=== PATIENT | female | born 1960 | race Caucasian/White ===

== ENCOUNTER 2021-09-18 01:04 | Inpatient (IN) | payer BC ==
[2021-09-18] MEDS ORDERED: Aspirin 81 MG Tab.Chew PO ONE (01:37)
[2021-09-18] MEDS ORDERED: Lactated Ringers 1,000 ML IV ONE (01:37)
[2021-09-18] MEDS ORDERED: Ketorolac 15 MG/ML SDV IM ONE (01:37)
[2021-09-18] MEDS ORDERED: Ketorolac 15 MG/ML SDV IVPUSH STA (01:45)
--- NOTE | 2021-09-18 01:57 | PCM.EKG ---
#1 Interpretation EKG Date: 09/18/21 Time: 01:46 Rhythm: NSR Rate (Beats/Min): 77 [place]: Normal P-Wave: Present QRS: Normal ST-T: Normal QT: Normal Comparison: NA - No Prior EKG EKG Interpretation Comments: Sinus Rhythm
--- NOTE | 2021-09-18 01:57 | EDM.PDOC ---
ED HPI GENERAL MEDICAL PROBLEM - General Chief Complaint: General Stated Complaint: WEAKNESS,POSSIBLE EAR INFECTION Time Seen by Provider: 09/18/21 01:20 - History of Present Illness INITIAL COMMENTS - FREE TEXT/NARRATIVE: CHIEF COMPLAINT(S): Weakness HISTORY OF PRESENT ILLNESS: This is a 61-year-old man man with a past medical history of hypertension and diagnosis of COVID-19 approximately 5 days ago who comes to the emergency department with a chief complaint of weakness. The patient states that since being diagnosed she has been experiencing more weakness. She states that she is experiencing some mild shortness of breath and cough however she developed some left-sided chest pain today which she describes as intermittent and worse with deep breathing. She denies any hemoptysis. She currently describes her pain as 7 out of 10 and achy. She denies any radiation of this pain. She denies any numbness or tingling. She denies any history of CAD or CHF. She denies any recent travel, recent surgery, prior history of DVT or PE. She is states that she does not have any lower extremity edema. She has been experiencing a bifrontal headache worse on the left side which is throbbing. She also describes as a 7 out of 10 without any nausea, vomiting, trouble walking speaking or swallowing. She states that she is not vaccinated and did not get the infusion. She denies any other symptoms REVIEW OF SYSTEMS: Constitutional: Positive for weakness. Denies fever, chills. Eyes: Denies eye pain Ears, Nose, Mouth, & Throat: Denies earache Cardiovascular: Denies chest pain Respiratory: Positive for shortness of breath and nonproductive cough. Denies hemoptysis Gastrointestinal: Denies Nausea, vomiting, diarrhea, hematochezia. Genitourinary: Denies hematuria Skin:Denies a rash MSK: Denies joint pain Neurological: Positive for headache. Denies blurred vision, numbness, tingling, weakness, diplopia Psychiatric: Denies depression PAST MEDICAL HISTORY: As per history of present illness and as reviewed below otherwise noncontributory. SURGICAL HISTORY: As per history of present illness and as reviewed below otherwise noncontributory. SOCIAL HISTORY: As per history of present illness and as reviewed below otherwise noncontributory. FAMILY HISTORY: As per history of present illness and as reviewed below otherwise noncontributory. EXAMINATION OF ORGAN SYSTEMS/BODY AREAS: Constitutional: Blood pressure was 128/69, heart rate 89, respiratory rate 22 with an oxygen saturation of 87% on 3 L nasal cannula. Temperature 38.1 General: Middle aged woman without any acute distress. Psychiatric: Appropriate mood and affect. Eyes: No scleral icterus or conjunctival erythema ENMT: Moist mucous membranes. No pharyngeal erythema Cardiovascular: Regular, rate, and rhythm. No gallops, murmurs, or rubs. Bilateral upper extremity pulses symmetric and intact. No peripheral edema. No JVD. Respiratory: Lungs clear to auscultation bilaterally. No wheezes, rales, or rhonchi. Speak in full sentences. Gastrointestinal: Soft, non-tender, non-distended. Normoactive bowel sounds Genitourinary: No suprapubic tenderness Musculoskeletal: Normal range of motion. Skin: No lesions or abrasions. Neurological: Alert, GCS 15 strength sensation grossly intact in upper and lower extremities bilaterally. MEDICAL DECISION MAKING AND COURSE IN THE ED WITH INTERPRETATION/REVIEW OF DIAGNOSTIC STUDIES: This is a 61-year-old woman with a past medical history of hypertension and recent diagnosis of COVID-19 who comes to the emergency department with acute hypoxic respiratory failure likely secondary to progressing COVID-19 pneumonia. The patient does not appear to be in any acute distress. Given the left-sided chest pain and given her age will undergo an ACS work-up. Only 1 troponin will be needed given the patient's duration of symptoms. EKG was obtained which not reveal any acute signs of ischemia. The patient was placed on cardiac monitoring and pulse oximetry. radiology orderly at this time did reveal sinus rhythm and pulse oximetry with good waveform on nonrebreather was 96%. We will provide the patient with Toradol for the fever, provide her with 1 L of lactated Ringer's bolus given her weakness and provide her with 324 mg of aspirin. Will obtain a Covid and flu swab as we do not have the results in our system. Will obtain a chest x-ray DDx: COVID-19 pneumonia, ACS, costochondritis secondary to cough Laboratory: CBC is unremarkable. BMP reveals hyponatremia at 131, hypokalemia at 3.4, hypochloremia 89, hyperglycemia at 325. CRP is elevated at 10.10. Troponin is negative. ESR is normal. At this time I did send an A1C as the patient denies any DM. Laboratory: COVID-19 is positive. On reevaluation we were able to place the patient on 5 L nasal cannula with her pulse oximetry maintaining above 91%. At this time I did start the patient on remdesivir IV and gave the patient 6 mg of p.o. dexamethasone. Will obtain AST LT, total bilirubin given that we are giving remdesivir and will also start the patient on maintenance fluids of lactated Ringer's at 125 cc/h. We will replenish the patient's potassium with 40 mEq of p.o. potassium. I did discuss admission with the patient. She was amenable to this plan. I then contacted Dr. Dinh who accepted the patient for admission DISPOSITION: Patient was admitted to the hospital in stable yet serious condition CONDITION: Serious PROCEDURES: Cardiac monitoring interpretation, pulse oximetry interpretation FINAL IMPRESSION(S)/DIAGNOSES: 1. Acute hypoxic respiratory failure secondary to COVID-19 pneumonia 2. New onset diabetes mellitus Critical Care Procedure Note Authorized and performed by: Dudley Gleason M.D. Critical Care Time: 55 minutes Due to a high probability of clinically significant, life threatening deterioration, the patient required my highest level of preparedness to intervene emergently and I personally spent this critical care time directly and personally managing the patient. This critical care time included obtaining a history, examining the patient, pulse oximetry; ordering and review of studies; arranging urgent treatment with development of a management plan; evaluation of a patients reponse to treatment; frequent assessment; and discussions with other providers. This critical care time was performed to assess and manage the high probability of imminent, life threatening deterioration that could result in multiorgan failure. It was exclusive of separate billable procedures and treating other patients. Please see MDM section and rest of the note for further information on patient assessment and treatment. Please see MDM section and rest of the note for further information on patient assessment and treatment. Dudley Gleason M.D. 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 Musculoskeletal History: Reports: None Neurological History: Reports: None Psychiatric History: Reports: None Endocrine/Metabolic History: Reports: None Hematologic History: Reports: None Immunologic History: Reports: None Oncologic (Cancer) History: Reports: None - Infectious Disease History Infectious Disease History: Reports: Chicken Pox, Measles - Past Surgical History Female Surgical History: Reports: None Endocrine Surgical History: Reports: None Neurological Surgical History: Reports: None Musculoskeletal Surgical History: Reports: None Social & Family History - Family History Family Medical History: No Pertinent Family History - Tobacco Use Tobacco Use Status *Q: Never Tobacco User - Recreational Drug Use Recreational Drug Use: No ED ROS GENERAL - Review of Systems Review Of Systems: See Below ED EXAM, GENERAL - Physical Exam Exam: See Below Course - Vital Signs Last Recorded V/S: Last Vital Signs Temp 36.3 C 09/18/21 01:13 Pulse 84 09/18/21 02:25 Resp 22 H 09/18/21 02:25 BP 131/56 L 09/18/21 02:25 Pulse Ox 95 09/18/21 02:30 - Orders/Labs/Meds Orders: Active Orders 24 hr Category Date Time Status Admission Status [Patient Status] [ADT] Stat ADT 09/18/21 02:21 Active Lactated Ringers [Ringers, Lactated] 1,000 ml Med 09/18/21 01:37 Active IV .BOLUS Lactated Ringers [Ringers, Lactated] 1,000 ml Med 09/18/21 02:30 Active IV ASDIRECTED Medication Orders Lactated Ringer's (Ringers, Lactated) 1,000 mls @ 999 mls/hr IV .BOLUS ONE Stop: 09/18/21 02:37 Last Admin: 09/18/21 01:50 Dose: 999 mls/hr Documented by: SEAGMIC Lactated Ringer's (Ringers, Lactated) 1,000 mls @ 125 mls/hr IV ASDIRECTED GAGANDEEP Labs: Laboratory Tests 09/18/21 09/18/21 09/18/21 Range/Units 01:20 01:20 01:20 WBC 6.94 (4.0-11.0) K/uL RBC 5.12 (4.30-5.90) M/uL Hgb 15.3 (12.0-16.0) g/dL Hct 43.8 (36.0-46.0) % MCV 85.5 (80.0-98.0) fL MCH 29.9 (27.0-32.0) pg MCHC 34.9 (31.0-37.0) g/dL RDW Std Deviation 39.4 (28.0-62.0) fl RDW Coeff of Deniz 13 (11.0-15.0) % Plt Count 178 (150-400) K/uL MPV 10.40 (7.40-12.00) fL Neut % (Auto) 80.9 H (48.0-80.0) % Lymph % (Auto) 11.2 L (16.0-40.0) % [place] % (Auto) 7.8 (0.0-15.0) % Eos % (Auto) 0.0 (0.0-7.0) % Baso % (Auto) 0.1 (0.0-1.5) % Neut # (Auto) 5.6 (1.4-5.7) K/uL Lymph # (Auto) 0.8 (0.6-2.4) K/uL [place] # (Auto) 0.5 (0.0-0.8) K/uL Eos # (Auto) 0.0 (0.0-0.7) K/uL Baso # (Auto) 0.0 (0.0-0.1) K/uL Nucleated RBC % 0.0 /100WBC Nucleated RBCs # 0 K/uL ESR 17 (0-29) mm/hr Sodium 131 L (136-145) mmol/L Potassium 3.4 L (3.5-5.1) mmol/L Chloride 89 L (98-107) mmol/L Carbon Dioxide 31.0 (21.0-32.0) mmol/L BUN 14 (7.0-18.0) mg/dL Creatinine 0.8 (0.6-1.0) mg/dL Est Cr Clr Drug Dosing 73.63 mL/min Estimated GFR (MDRD) > 60.0 ml/min Glucose 325 H (74-106) mg/dL Hemoglobin A1c (4.5 - 6.2) % Calcium 8.9 (8.5-10.1) mg/dL Magnesium 2.1 (1.8-2.4) mg/dL Total Bilirubin (0.2-1.0) mg/dL AST (15-37) IU/L ALT (14-63) IU/L Alkaline Phosphatase (46-116) U/L Troponin I < 0.050 (0.000-0.056) ng/mL C-Reactive Protein 10.10 H (0.00-0.90) mg/dL Influenza Type A RNA (NEGATIVE) Influenza Type B RNA (NEGATIVE) SARS-CoV-2 RNA (EUSEBIO) (NEGATIVE) 09/18/21 09/18/21 09/18/21 Range/Units 01:20 01:20 01:37 WBC (4.0-11.0) K/uL RBC (4.30-5.90) M/uL Hgb (12.0-16.0) g/dL Hct (36.0-46.0) % MCV (80.0-98.0) fL MCH (27.0-32.0) pg MCHC (31.0-37.0) g/dL RDW Std Deviation (28.0-62.0) fl RDW Coeff of Deniz (11.0-15.0) % Plt Count (150-400) K/uL MPV (7.40-12.00) fL Neut % (Auto) (48.0-80.0) % Lymph % (Auto) (16.0-40.0) % [place] % (Auto) (0.0-15.0) % Eos % (Auto) (0.0-7.0) % Baso % (Auto) (0.0-1.5) % Neut # (Auto) (1.4-5.7) K/uL Lymph # (Auto) (0.6-2.4) K/uL [place] # (Auto) (0.0-0.8) K/uL Eos # (Auto) (0.0-0.7) K/uL Baso # (Auto) (0.0-0.1) K/uL Nucleated RBC % /100WBC Nucleated RBCs # K/uL ESR (0-29) mm/hr Sodium (136-145) mmol/L Potassium (3.5-5.1) mmol/L Chloride (98-107) mmol/L Carbon Dioxide (21.0-32.0) mmol/L BUN (7.0-18.0) mg/dL Creatinine (0.6-1.0) mg/dL Est Cr Clr Drug Dosing mL/min Estimated GFR (MDRD) ml/min Glucose (74-106) mg/dL Hemoglobin A1c 10.7 H (4.5 - 6.2) % Calcium (8.5-10.1) mg/dL Magnesium (1.8-2.4) mg/dL Total Bilirubin 0.4 (0.2-1.0) mg/dL AST 27 (15-37) IU/L ALT 30 (14-63) IU/L Alkaline Phosphatase 91 (46-116) U/L Troponin I (0.000-0.056) ng/mL C-Reactive Protein (0.00-0.90) mg/dL Influenza Type A RNA NEGATIVE (NEGATIVE) Influenza Type B RNA NEGATIVE (NEGATIVE) SARS-CoV-2 RNA (EUSEBIO) POSITIVE H (NEGATIVE) Meds: Medications Generic Name Dose Route Start Last Admin Trade Name Freq PRN Reason Stop Dose Admin Lactated Ringer's 1,000 mls @ 999 mls/hr 09/18/21 01:37 09/18/21 01:50 Ringers, Lactated IV 09/18/21 02:37 999 mls/hr .BOLUS ONE Administration Lactated Ringer's 1,000 mls @ 125 mls/hr 09/18/21 02:30 Ringers, Lactated IV ASDIRECTED GAGANDEEP Discontinued Medications Generic Name Dose Route Start Last Admin Trade Name Freq PRN Reason Stop Dose Admin Aspirin 324 mg 09/18/21 01:37 09/18/21 01:50 Aspirin 81 Mg Tab.Chew PO 09/18/21 01:38 324 mg ONETIME ONE Administration Dexamethasone 6 mg 09/18/21 02:11 09/18/21 02:22 Dexamethasone 4 Mg Tab PO 09/18/21 02:12 6 mg ONETIME ONE Administration Remdesivir 200 mg/ Sodium 250 mls @ 250 mls/hr 09/18/21 02:12 Chloride IV 09/18/21 02:13 ONETIME ONE Ketorolac Tromethamine 15 mg 09/18/21 01:37 09/18/21 01:53 Ketorolac 15 Mg/Ml Sdv IM 09/18/21 01:38 Not Given ONETIME ONE Ketorolac Tromethamine 15 mg 09/18/21 01:45 09/18/21 01:50 Ketorolac 15 Mg/Ml Sdv IVPUSH 09/18/21 01:46 15 mg NOW STA Administration Potassium Chloride 40 meq 09/18/21 02:13 09/18/21 02:22 Potassium Chloride 10% 20 Meq/15 Ml Soln 30 Ml Ud Cup PO 09/18/21 02:14 40 meq ONETIME ONE Administration Departure - Departure Time of Disposition: 02:29 Disposition: Admitted As Inpatient 68 Condition: Serious Clinical Impression: COVID-19 - Discharge Information *PRESCRIPTION DRUG MONITORING PROGRAM REVIEWED*: No *COPY OF PRESCRIPTION DRUG MONITORING REPORT IN PATIENT MATT: No Forms: ED Department Discharge Sepsis Event Note (ED) - Focused Exam Vital Signs: Vital Signs Temp Temp Pulse Resp BP Pulse Ox 09/18/21 02:30 95 09/18/21 02:25 84 22 H 131/56 L 92 L 09/18/21 02:00 80 20 136/67 96 09/18/21 01:35 93 L 09/18/21 01:20 90 L 09/18/21 01:13 38.1 C 36.3 C 89 22 H 128/69 87 L - My Orders Last 24 Hours: My Active Orders 09/18/21 01:37 Lactated Ringers [Ringers, Lactated] 1,000 ml IV .BOLUS 09/18/21 02:21 Admission Status [Patient Status] [ADT] Stat 09/18/21 02:30 Lactated Ringers [Ringers, Lactated] 1,000 ml IV ASDIRECTED - Assessment/Plan Last 24 Hours: My Active Orders 09/18/21 01:37 Lactated Ringers [Ringers, Lactated] 1,000 ml IV .BOLUS 09/18/21 02:21 Admission Status [Patient Status] [ADT] Stat 09/18/21 02:30 Lactated Ringers [Ringers, Lactated] 1,000 ml IV ASDIRECTED
[2021-09-18 02:02] LABS: BLOOD UREA NITROGEN,BUN 14 mg/dL (7.0-18.0); CHLORIDE,CL 89 mmol/L (98-107); GLUCOSE RANDOM 325 mg/dL (74-106); POTASSIUM,K 3.4 mmol/L (3.5-5.1); SODIUM,NA 131 mmol/L (136-145)
--- NOTE | 2021-09-18 02:08 | CR ---
Indication: Chest pain Technique: Chest 1 view Comparison: None Findings/Impression: Cardiovascular and mediastinum: Normal hurt size with mild aortic tortuosity. Lungs and pleural space: No pleural effusion or pneumothorax. Bilateral patchy opacities within the lung suspicious for pneumonia. Bones and soft tissues: No acute findings. Dictated by Joseph Carrington MD @ 09/18/2021 2:06:09 AM (Electronically Signed)
[2021-09-18] MEDS ORDERED: Dexamethasone 4 MG Tab PO ONE (02:11)
[2021-09-18] MEDS ORDERED: REMDESIVIR 200 MG in Sodium Chloride 0.9% 250 ML IV ONE (02:12)
[2021-09-18] MEDS ORDERED: Potassium Chloride 10% 20 MEQ/15 ML Soln 30 ML UD Cup PO ONE (02:13)
[2021-09-18 02:17] LABS: HEMOGLOBIN A1C 10.7 %
[2021-09-18 02:25] LABS: CORONAVIRUS COVID-19 NAA POSITIVE (NEGATIVE); INFLUENZA A NAA NEGATIVE (NEGATIVE); INFLUENZA B NAA NEGATIVE (NEGATIVE)
[2021-09-18] MEDS ORDERED: Lactated Ringers 1,000 ML IV SCH (02:30)
[2021-09-18] MEDS: Acetaminophen 325 MG Tab PO PRN ×2 (08:50→21:22)
[2021-09-18] MEDS: Ondansetron 4 MG/2 ML SDV IVPUSH PRN (08:53)
[2021-09-18] MEDS ORDERED: Ondansetron 4 MG Tab.DIS PO PRN (14:53)
--- NOTE | 2021-09-18 14:53 | PCM.HP.2 ---
H&P History of Present Illness - General Date of Service: 09/18/21 Admit Problem/Dx: Admission Diagnosis/Problem Admission Diagnosis/Problem Hypoxia - History of Present Illness Initial Comments - Free Text/Narative: This is a 61-year-old man with a past medical history of hypertension and diagnosis of COVID-19 approximately 5 days ago who comes to the emergency department with a chief complaint of weakness. The patient states that since being diagnosed she has been experiencing more weakness. She states that she is experiencing some mild shortness of breath and cough however she developed some left-sided chest pain today which she describes as intermittent and worse with deep breathing. She denies any hemoptysis. She currently describes her pain as 7 out of 10 and achy. She denies any radiation of this pain. She denies any numbness or tingling. She denies any history of CAD or CHF. She denies any recent travel, recent surgery, prior history of DVT or PE. She is states that she does not have any lower extremity edema. She has been experiencing a bifrontal headache worse on the left side which is throbbing. She also describes as a 7 out of 10 without any nausea, vomiting, trouble walking speaking or swallowing. She states that she is not vaccinated and did not get the infusion. She denies any other symptoms Bilateral Trunk Pain Score (Numeric/FACES): 0 Headache Pain Score (Numeric/FACES): 3 - Related Data Allergies/Adverse Reactions: Allergies Allergy/AdvReac Type Severity Reaction Status Date / Time Penicillins Allergy Rash Verified 09/18/21 01:12 Home Medications: Home Meds Citalopram [Citalopram HBr] 20 mg PO DAILY 09/18/21 [History] Lisinopril/Hydrochlorothiazide [Lisinopril-Hctz 20-12.5 mg Tab] 1 each PO DAILY 09/18/21 [History] Past Medical History HEENT History: Reports: None Cardiovascular History: Reports: Hypertension Respiratory History: Reports: None Gastrointestinal History: Reports: None Genitourinary History: Reports: 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 Musculoskeletal History: Reports: None Neurological History: Reports: None Psychiatric History: Reports: None Endocrine/Metabolic History: Reports: None Hematologic History: Reports: None Immunologic History: Reports: None Oncologic (Cancer) History: Reports: None - Infectious Disease History Infectious Disease History: Reports: Chicken Pox, Measles - Past Surgical History Female Surgical History: Reports: None Endocrine Surgical History: Reports: None Neurological Surgical History: Reports: None Musculoskeletal Surgical History: Reports: None Social & Family History - Family History Family Medical History: No Pertinent Family History - Tobacco Use Tobacco Use Status *Q: Never Tobacco User Second Hand Smoke Exposure: No - Caffeine Use Caffeine Use: Reports: Soda Other Caffeine Use: Rarely - Recreational Drug Use Recreational Drug Use: No H&P Review of Systems - Review of Systems: Review Of Systems: See Below Exam - Exam Exam: See Below - Vital Signs Vital Signs: Last Vital Signs Temp 96.5 F L 09/18/21 09:20 Pulse 68 09/18/21 12:00 Resp 18 09/18/21 12:00 BP 130/42 L 09/18/21 12:00 Pulse Ox 89 L 09/18/21 12:00 Weight: 243 lb 9.6 oz - Exam Physical Exam Comments:: General: Obese Middle age female. In no acute distress CVS: S2S2 appreciated. RRR lungs: diminished bilaterally, no rales or wheezes. pa: soft,non tender. Bowel sounds present Ext: no clubbing, cyanosis or edema neuro: moves all extremities psych: stable mood and affect. - Patient Data Lab Results Last 24 hrs: Laboratory Results - last 24 hr 09/18/21 09/18/21 09/18/21 Range/Units 01:20 01:20 01:20 WBC 6.94 (4.0-11.0) K/uL RBC 5.12 (4.30-5.90) M/uL Hgb 15.3 (12.0-16.0) g/dL Hct 43.8 (36.0-46.0) % MCV 85.5 (80.0-98.0) fL MCH 29.9 (27.0-32.0) pg MCHC 34.9 (31.0-37.0) g/dL RDW Std Deviation 39.4 (28.0-62.0) fl RDW Coeff of Deniz 13 (11.0-15.0) % Plt Count 178 (150-400) K/uL MPV 10.40 (7.40-12.00) fL Neut % (Auto) 80.9 H (48.0-80.0) % Lymph % (Auto) 11.2 L (16.0-40.0) % [place] % (Auto) 7.8 (0.0-15.0) % Eos % (Auto) 0.0 (0.0-7.0) % Baso % (Auto) 0.1 (0.0-1.5) % Neut # (Auto) 5.6 (1.4-5.7) K/uL Lymph # (Auto) 0.8 (0.6-2.4) K/uL [place] # (Auto) 0.5 (0.0-0.8) K/uL Eos # (Auto) 0.0 (0.0-0.7) K/uL Baso # (Auto) 0.0 (0.0-0.1) K/uL Nucleated RBC % 0.0 /100WBC Nucleated RBCs # 0 K/uL ESR 17 (0-29) mm/hr Sodium 131 L (136-145) mmol/L Potassium 3.4 L (3.5-5.1) mmol/L Chloride 89 L (98-107) mmol/L Carbon Dioxide 31.0 (21.0-32.0) mmol/L BUN 14 (7.0-18.0) mg/dL Creatinine 0.8 (0.6-1.0) mg/dL Est Cr Clr Drug Dosing 73.63 mL/min Estimated GFR (MDRD) > 60.0 ml/min Glucose 325 H (74-106) mg/dL Hemoglobin A1c (4.5 - 6.2) % Calcium 8.9 (8.5-10.1) mg/dL Magnesium 2.1 (1.8-2.4) mg/dL Total Bilirubin (0.2-1.0) mg/dL AST (15-37) IU/L ALT (14-63) IU/L Alkaline Phosphatase (46-116) U/L Troponin I < 0.050 (0.000-0.056) ng/mL C-Reactive Protein 10.10 H (0.00-0.90) mg/dL Influenza Type A RNA (NEGATIVE) Influenza Type B RNA (NEGATIVE) SARS-CoV-2 RNA (EUSEBIO) (NEGATIVE) 09/18/21 09/18/21 09/18/21 Range/Units 01:20 01:20 01:37 WBC (4.0-11.0) K/uL RBC (4.30-5.90) M/uL Hgb (12.0-16.0) g/dL Hct (36.0-46.0) % MCV (80.0-98.0) fL MCH (27.0-32.0) pg MCHC (31.0-37.0) g/dL RDW Std Deviation (28.0-62.0) fl RDW Coeff of Deniz (11.0-15.0) % Plt Count (150-400) K/uL MPV (7.40-12.00) fL Neut % (Auto) (48.0-80.0) % Lymph % (Auto) (16.0-40.0) % [place] % (Auto) (0.0-15.0) % Eos % (Auto) (0.0-7.0) % Baso % (Auto) (0.0-1.5) % Neut # (Auto) (1.4-5.7) K/uL Lymph # (Auto) (0.6-2.4) K/uL [place] # (Auto) (0.0-0.8) K/uL Eos # (Auto) (0.0-0.7) K/uL Baso # (Auto) (0.0-0.1) K/uL Nucleated RBC % /100WBC Nucleated RBCs # K/uL ESR (0-29) mm/hr Sodium (136-145) mmol/L Potassium (3.5-5.1) mmol/L Chloride (98-107) mmol/L Carbon Dioxide (21.0-32.0) mmol/L BUN (7.0-18.0) mg/dL Creatinine (0.6-1.0) mg/dL Est Cr Clr Drug Dosing mL/min Estimated GFR (MDRD) ml/min Glucose (74-106) mg/dL Hemoglobin A1c 10.7 H (4.5 - 6.2) % Calcium (8.5-10.1) mg/dL Magnesium (1.8-2.4) mg/dL Total Bilirubin 0.4 (0.2-1.0) mg/dL AST 27 (15-37) IU/L ALT 30 (14-63) IU/L Alkaline Phosphatase 91 (46-116) U/L Troponin I (0.000-0.056) ng/mL C-Reactive Protein (0.00-0.90) mg/dL Influenza Type A RNA NEGATIVE (NEGATIVE) Influenza Type B RNA NEGATIVE (NEGATIVE) SARS-CoV-2 RNA (EUSEBIO) POSITIVE H (NEGATIVE) Result Diagrams: 09/19/21 07:14 09/19/21 07:14 Sepsis Event Note - Evaluation Sepsis Screening Result: No Definite Risk - Focused Exam Vital Signs: Vital Signs Temp Temp Pulse Resp BP Pulse Ox Pulse Ox 09/18/21 12:00 68 18 130/42 L 89 L 09/18/21 10:00 90 L 09/18/21 09:20 96.5 F L 09/18/21 08:00 79 18 138/84 90 L 09/18/21 07:00 97.3 F 79 18 138/84 90 L 09/18/21 04:00 98.1 F 75 17 100/66 91 L 09/18/21 03:17 20 128/62 93 L - Problem List (1) COVID-19 virus infection SNOMED Code(s): 126846932 ICD Code: U07.1 - COVID-19 Status: Acute Current Visit: Yes (2) Full code status SNOMED Code(s): 525440955 ICD Code: Z78.9 - OTHER SPECIFIED HEALTH STATUS Status: Acute Current Visit: Yes (3) Newly diagnosed diabetes SNOMED Code(s): 555396359, 516162672 ICD Code: E11.9 - TYPE 2 DIABETES MELLITUS WITHOUT COMPLICATIONS Status: Acute Current Visit: Yes (4) Obesity (BMI 30-39.9) SNOMED Code(s): 704574974, 357645989 ICD Code: E66.9 - OBESITY, UNSPECIFIED Status: Acute Current Visit: Yes (5) HTN (hypertension) SNOMED Code(s): 32711031 ICD Code: I10 - ESSENTIAL (PRIMARY) HYPERTENSION Status: Acute Current Visit: Yes (6) Acute hypoxemic respiratory failure due to COVID-19 SNOMED Code(s): 025897285 ICD Code: U07.1 - COVID-19; J96.01 - ACUTE RESPIRATORY FAILURE WITH HYPOXIA Status: Acute Current Visit: Yes Problem List Initiated/Reviewed/Updated: Yes Orders Last 24hrs: Active Orders 24 hr Category Date Time Status Admission Status [Patient Status] [ADT] Stat ADT 09/18/21 02:21 Active Oxygen Therapy [RC] ASDIRECTED Care 09/18/21 09:26 Active Regular Diet [DIET] Diet 09/18/21 Breakfast Active Acetaminophen [TylenoL] Med 09/18/21 08:30 Active 650 mg PO Q4H PRN Ondansetron [Zofran] Med 09/18/21 08:31 Active 4 mg IVPUSH Q4H PRN Medication Orders Acetaminophen (Acetaminophen 325 Mg Tab) 650 mg PO Q4H PRN PRN Reason: Pain Last Admin: 09/18/21 08:50 Dose: 650 mg Documented by: KASI Cosigned by: JOSE Ondansetron HCl (Ondansetron 4 Mg/2 Ml Sdv) 4 mg IVPUSH Q4H PRN PRN Reason: Nausea/Vomiting Last Admin: 09/18/21 08:53 Dose: 4 mg Documented by: KASI Cosigned by: JOSE Assessment/Plan Comment:: Acute hypoxemic respiratory failure due to COVID 19 Admit to the medical floor Oxygen supplementation Decadron, Remdesivir Proning Incentive spirometry Anticoagulation with SQ lovenox. Morbid obesity lifestyle modification T2DM ivis hernandez Full code status.
[2021-09-18] MEDS ORDERED: Iopamidol 755 MG/ML 500 ML Multipack Bottle IVPUSH ONE (17:02)
--- NOTE | 2021-09-18 17:24 | CT ---
INDICATION: Evaluate for PE. COMPARISON: Chest radiograph 09/18/2021. TECHNIQUE: CT of the chest with 100 cc of Isovue 370 IV contrast. Coronal and sagittal reconstructions. 3D post processing was performed. FINDINGS: Normal heart size. Normal caliber thoracic aorta and central pulmonary arteries. Negative for acute pulmonary embolism. No pericardial effusion. There is mediastinal and bilateral hilar lymphadenopathy which is likely reactive. Trace left pleural effusion. There are moderate to severe patchy ground-glass opacities throughout the lungs bilaterally with a peripheral predominance. Findings are suspicious for COVID pneumonia. No pneumothorax. No discrete pulmonary nodules identified. No central endobronchial lesion. Small calcification in the inferior right thyroid lobe. Probable hepatic steatosis. The visualized upper abdomen is otherwise unremarkable. Mild degenerative changes of the spine. IMPRESSION: 1. Negative for acute pulmonary embolism. 2. Moderate to severe patchy ground-glass opacities throughout the lungs bilaterally suspicious for COVID pneumonia. 3. Mediastinal and bilateral hilar lymphadenopathy is likely reactive. Please note that all CT scans at this facility use dose modulation, iterative reconstruction, and/or weight-based dosing when appropriate to reduce radiation dose to as low as reasonably achievable. Dictated by Ceci Veronica MD @ 09/18/2021 5:23:36 PM (Electronically Signed)
[2021-09-18] MEDS: Albuterol/Ipratropium 3.0-0.5 MG/3 ML Neb Soln NEB SCH ×3 (17:29→21:23)
[2021-09-18] MEDS: Enoxaparin 40 MG/0.4 ML Syringe SUBCUT SCH (17:29)
[2021-09-18 17:51] LABS: BLOOD UREA NITROGEN,BUN 15 mg/dL (7.0-18.0); CARBON DIOXIDE,CO2 30.2 mmol/L (21.0-32.0); CHLORIDE,CL 92 mmol/L (98-107); GLUCOSE RANDOM 344 mg/dL (74-106); POTASSIUM,K 4.1 mmol/L (3.5-5.1); SODIUM,NA 133 mmol/L (136-145)
[2021-09-18] MEDS ORDERED: Glucagon,Human Recombinant 1 MG Vial IM PRN (18:20)
[2021-09-18] MEDS ORDERED: 50% Dextrose in Water 50 ML Syringe IVPUSH PRN (18:20)
[2021-09-18] MEDS ORDERED: Insulin Glargine,Human Rec. Analog 100 Units/ML 3 ML Pen SUBCUT SCH (21:00)
[2021-09-19] MEDS: Albuterol/Ipratropium 3.0-0.5 MG/3 ML Neb Soln NEB SCH ×6 (02:48→22:04)
[2021-09-19] MEDS: Insulin Aspart 100 Units/ML 3 ML Pen SUBCUT SCH ×3 (08:12→17:37)
[2021-09-19] MEDS: Acetaminophen 325 MG Tab PO PRN ×2 (08:13→22:04)
[2021-09-19] MEDS: Citalopram 20 MG Tab PO SCH (08:14)
[2021-09-19] MEDS: REMDESIVIR 100 MG in Sodium Chloride 0.9% 100 ML IV SCH (08:15)
[2021-09-19 08:57] LABS: BLOOD UREA NITROGEN,BUN 14 mg/dL (7.0-18.0); CARBON DIOXIDE,CO2 26.9 mmol/L (21.0-32.0); CHLORIDE,CL 95 mmol/L (98-107); GLUCOSE RANDOM 339 mg/dL (74-106); POTASSIUM,K 3.7 mmol/L (3.5-5.1); SODIUM,NA 136 mmol/L (136-145)
[2021-09-19] MEDS ORDERED: 50% Dextrose in Water 50 ML Syringe IVPUSH PRN (14:04)
[2021-09-19] MEDS ORDERED: Glucagon,Human Recombinant 1 MG Vial IM PRN (14:04)
--- NOTE | 2021-09-19 14:15 | PCM.PN ---
- General Info Date of Service: 09/19/21 Admission Dx/Problem (Free Text): Pt is on 10-11 L oxygen by [facility]. She has been encouraged to continue using the incentive spirometer. Overall she feels a little stronger than she did yesterday. She is able to do 1400cc on the incentive spirometer. - Patient Data Vitals - Most Recent: Last Vital Signs Temp 97.4 F 09/19/21 12:00 Pulse 83 09/19/21 12:00 Resp 20 09/19/21 12:00 BP 99/50 L 09/19/21 12:00 Pulse Ox 89 L 09/19/21 12:37 Weight - Most Recent: 243 lb 9.6 oz I&O - Last 24 Hours: Intake & Output 09/18/21 09/19/21 09/19/21 22:59 06:59 14:59 Intake Total 800 1100 Output Total 840 Balance -40 1100 Lab Results Last 24 Hours: Laboratory Results - last 24 hr 09/18/21 09/18/21 09/18/21 Range/Units 17:07 17:07 20:57 WBC (4.0-11.0) K/uL RBC (4.30-5.90) M/uL Hgb (12.0-16.0) g/dL Hct (36.0-46.0) % MCV (80.0-98.0) fL MCH (27.0-32.0) pg MCHC (31.0-37.0) g/dL RDW Std Deviation (28.0-62.0) fl RDW Coeff of Deniz (11.0-15.0) % Plt Count (150-400) K/uL MPV (7.40-12.00) fL Neut % (Auto) (48.0-80.0) % Lymph % (Auto) (16.0-40.0) % [place] % (Auto) (0.0-15.0) % Eos % (Auto) (0.0-7.0) % Baso % (Auto) (0.0-1.5) % Neut # (Auto) (1.4-5.7) K/uL Lymph # (Auto) (0.6-2.4) K/uL [place] # (Auto) (0.0-0.8) K/uL Eos # (Auto) (0.0-0.7) K/uL Baso # (Auto) (0.0-0.1) K/uL Nucleated RBC % /100WBC Nucleated RBCs # K/uL D-Dimer, Quantitative 0.84 H (0.0-0.50) mg/L FEU Sodium 133 L (136-145) mmol/L Potassium 4.1 (3.5-5.1) mmol/L Chloride 92 L (98-107) mmol/L Carbon Dioxide 30.2 (21.0-32.0) mmol/L BUN 15 (7.0-18.0) mg/dL Creatinine 0.7 (0.6-1.0) mg/dL Est Cr Clr Drug Dosing 84.15 mL/min Estimated GFR (MDRD) > 60.0 ml/min Glucose 344 H (74-106) mg/dL POC Glucose 346 H (70-99) mg/dL Calcium 8.5 (8.5-10.1) mg/dL Total Bilirubin 0.4 (0.2-1.0) mg/dL Direct Bilirubin 0.10 (0.0-0.5) mg/dL AST 24 (15-37) IU/L ALT 26 (14-63) IU/L Alkaline Phosphatase 83 (46-116) U/L Total Protein 7.7 (6.4-8.2) g/dL Albumin 2.8 L (3.4-5.0) g/dL Globulin 4.9 H (2.6-4.0) g/dL Albumin/Globulin Ratio 0.6 L (0.9-1.6) 09/19/21 09/19/21 09/19/21 Range/Units 06:40 07:14 07:14 WBC 6.82 (4.0-11.0) K/uL RBC 4.85 (4.30-5.90) M/uL Hgb 14.1 (12.0-16.0) g/dL Hct 42.5 (36.0-46.0) % MCV 87.6 (80.0-98.0) fL MCH 29.1 (27.0-32.0) pg MCHC 33.2 (31.0-37.0) g/dL RDW Std Deviation 40.4 (28.0-62.0) fl RDW Coeff of Deniz 13 (11.0-15.0) % Plt Count 212 (150-400) K/uL MPV 10.50 (7.40-12.00) fL Neut % (Auto) 70.3 (48.0-80.0) % Lymph % (Auto) 21.4 (16.0-40.0) % [place] % (Auto) 8.1 (0.0-15.0) % Eos % (Auto) 0.1 (0.0-7.0) % Baso % (Auto) 0.1 (0.0-1.5) % Neut # (Auto) 4.8 (1.4-5.7) K/uL Lymph # (Auto) 1.5 (0.6-2.4) K/uL [place] # (Auto) 0.6 (0.0-0.8) K/uL Eos # (Auto) 0.0 (0.0-0.7) K/uL Baso # (Auto) 0.0 (0.0-0.1) K/uL Nucleated RBC % 0.0 /100WBC Nucleated RBCs # 0 K/uL D-Dimer, Quantitative (0.0-0.50) mg/L FEU Sodium 136 (136-145) mmol/L Potassium 3.7 (3.5-5.1) mmol/L Chloride 95 L (98-107) mmol/L Carbon Dioxide 26.9 (21.0-32.0) mmol/L BUN 14 (7.0-18.0) mg/dL Creatinine 0.6 (0.6-1.0) mg/dL Est Cr Clr Drug Dosing 98.18 mL/min Estimated GFR (MDRD) > 60.0 ml/min Glucose 339 H (74-106) mg/dL POC Glucose 289 H (70-99) mg/dL Calcium 8.9 (8.5-10.1) mg/dL Total Bilirubin (0.2-1.0) mg/dL Direct Bilirubin (0.0-0.5) mg/dL AST (15-37) IU/L ALT (14-63) IU/L Alkaline Phosphatase (46-116) U/L Total Protein (6.4-8.2) g/dL Albumin (3.4-5.0) g/dL Globulin (2.6-4.0) g/dL Albumin/Globulin Ratio (0.9-1.6) 09/19/21 Range/Units 12:13 WBC (4.0-11.0) K/uL RBC (4.30-5.90) M/uL Hgb (12.0-16.0) g/dL Hct (36.0-46.0) % MCV (80.0-98.0) fL MCH (27.0-32.0) pg MCHC (31.0-37.0) g/dL RDW Std Deviation (28.0-62.0) fl RDW Coeff of Deniz (11.0-15.0) % Plt Count (150-400) K/uL MPV (7.40-12.00) fL Neut % (Auto) (48.0-80.0) % Lymph % (Auto) (16.0-40.0) % [place] % (Auto) (0.0-15.0) % Eos % (Auto) (0.0-7.0) % Baso % (Auto) (0.0-1.5) % Neut # (Auto) (1.4-5.7) K/uL Lymph # (Auto) (0.6-2.4) K/uL [place] # (Auto) (0.0-0.8) K/uL Eos # (Auto) (0.0-0.7) K/uL Baso # (Auto) (0.0-0.1) K/uL Nucleated RBC % /100WBC Nucleated RBCs # K/uL D-Dimer, Quantitative (0.0-0.50) mg/L FEU Sodium (136-145) mmol/L Potassium (3.5-5.1) mmol/L Chloride (98-107) mmol/L Carbon Dioxide (21.0-32.0) mmol/L BUN (7.0-18.0) mg/dL Creatinine (0.6-1.0) mg/dL Est Cr Clr Drug Dosing mL/min Estimated GFR (MDRD) ml/min Glucose (74-106) mg/dL POC Glucose 341 H (70-99) mg/dL Calcium (8.5-10.1) mg/dL Total Bilirubin (0.2-1.0) mg/dL Direct Bilirubin (0.0-0.5) mg/dL AST (15-37) IU/L ALT (14-63) IU/L Alkaline Phosphatase (46-116) U/L Total Protein (6.4-8.2) g/dL Albumin (3.4-5.0) g/dL Globulin (2.6-4.0) g/dL Albumin/Globulin Ratio (0.9-1.6) Med Orders - Current: Current Medications Acetaminophen (Acetaminophen 325 Mg Tab) 650 mg PO Q4H PRN PRN Reason: Pain (Mild 1-3)/fever Albuterol/Ipratropium (Albuterol/Ipratropium 3.0-0.5 Mg/3 Ml Neb Soln) 3 ml NEB Q4HRRT [facility] [place] Last Admin: 09/19/21 14:04 Dose: 3 ml Documented by: Citalopram Hydrobromide (Citalopram 20 Mg Tab) 20 mg PO DAILY [facility] [place] Last Admin: 09/19/21 08:14 Dose: 20 mg Documented by: Dextrose/Water (50% Dextrose In Water 50 Ml Syringe) 50 ml IVPUSH ASDIRECTED PRN PRN Reason: Hypoglycemia Enoxaparin Sodium (Enoxaparin 40 Mg/0.4 Ml Syringe) 40 mg SUBCUT Q24H [facility] [place] Last Admin: 09/18/21 17:29 Dose: 40 mg Documented by: Fluticasone Propionate (Fluticasone Propionate Nasal Abie 16 Gm Bottle) 0 gm NASBOTH BID [facility] [place] Glucagon (Glucagon,Human Recombinant 1 Mg Vial) 1 mg IM ASDIRECTED PRN PRN Reason: Hypoglycemia Remdesivir 100 mg/ Sodium (Chloride) 100 mls @ 100 mls/hr IV Q24H [facility] [place] Stop: 09/22/21 09:59 Last Admin: 09/19/21 08:15 Dose: 100 mls/hr Documented by: Insulin Aspart (Insulin Aspart 100 Units/Ml 3 Ml Pen) 0 unit SUBCUT TIDAC [facility] [place]; Protocol Last Admin: 09/19/21 12:35 Dose: 4 units Documented by: Insulin Glargine (Insulin Glargine,Human Rec. Analog 100 Units/Ml 3 Ml Pen) 10 units SUBCUT BID [facility] [place] Ondansetron HCl (Ondansetron 4 Mg/2 Ml Sdv) 4 mg IVPUSH Q4H PRN PRN Reason: Nausea/Vomiting Last Admin: 09/18/21 08:53 Dose: 4 mg Documented by: Ondansetron HCl (Ondansetron 4 Mg Tab.Dis) 4 mg PO Q4H PRN PRN Reason: nausea, able to take PO Discontinued Medications Acetaminophen (Acetaminophen 325 Mg Tab) 650 mg PO Q4H PRN PRN Reason: Pain Last Admin: 09/19/21 08:13 Dose: 650 mg Documented by: Aspirin (Aspirin 81 Mg Tab.Chew) 324 mg PO ONETIME ONE Stop: 09/18/21 01:38 Last Admin: 09/18/21 01:50 Dose: 324 mg Documented by: Dexamethasone (Dexamethasone 4 Mg Tab) 6 mg PO ONETIME ONE Stop: 09/18/21 02:12 Last Admin: 09/18/21 02:22 Dose: 6 mg Documented by: Dextrose/Water (50% Dextrose In Water 50 Ml Syringe) 50 ml IVPUSH ASDIRECTED PRN PRN Reason: Hypoglycemia Glucagon (Glucagon,Human Recombinant 1 Mg Vial) 1 mg IM ASDIRECTED PRN PRN Reason: Hypoglycemia Lactated Ringer's (Ringers, Lactated) 1,000 mls @ 999 mls/hr IV .BOLUS ONE Stop: 09/18/21 02:37 Last Admin: 09/18/21 01:50 Dose: 999 mls/hr Documented by: Remdesivir 200 mg/ Sodium (Chloride) 250 mls @ 250 mls/hr IV ONETIME ONE Stop: 09/18/21 02:13 Last Admin: 09/18/21 03:00 Dose: 250 mls/hr Documented by: Lactated Ringer's (Ringers, Lactated) 1,000 mls @ 125 mls/hr IV ASDIRECTED GAGANDEEP Last Admin: 09/18/21 03:00 Dose: 125 mls/hr Documented by: Insulin Glargine (Insulin Glargine,Human Rec. Analog 100 Units/Ml 3 Ml Pen) 10 units SUBCUT BEDTIME [facility] [place] Last Admin: 09/18/21 21:23 Dose: 10 units Documented by: Iopamidol (Iopamidol 755 Mg/Ml 500 Ml Multipack Bottle) 100 ml IVPUSH ONETIME ONE Stop: 09/18/21 17:03 Last Admin: 09/18/21 17:03 Dose: 100 ml Documented by: Ketorolac Tromethamine (Ketorolac 15 Mg/Ml Sdv) 15 mg IM ONETIME ONE Stop: 09/18/21 01:38 Last Admin: 09/18/21 01:53 Dose: Not Given Documented by: Ketorolac Tromethamine (Ketorolac 15 Mg/Ml Sdv) 15 mg IVPUSH NOW STA Stop: 09/18/21 01:46 Last Admin: 09/18/21 01:50 Dose: 15 mg Documented by: Potassium Chloride (Potassium Chloride 10% 20 Meq/15 Ml Soln 30 Ml Ud Cup) 40 meq PO ONETIME ONE Stop: 09/18/21 02:14 Last Admin: 09/18/21 02:22 Dose: 40 meq Documented by: - Exam Physical Findings Comments:: General: Obese Middle age female. In no acute distress. Pt is proning. CVS: S2S2 appreciated. RRR lungs: diminished bilaterally, no rales or wheezes. pa: soft,non tender. Bowel sounds present Ext: no clubbing, cyanosis or edema neuro: moves all extremities psych: stable mood and affect. - Patient Data Lab Results Last 24 hrs: Laboratory Results - last 24 hr 09/18/21 09/18/21 09/18/21 Range/Units 17:07 17:07 20:57 WBC (4.0-11.0) K/uL RBC (4.30-5.90) M/uL Hgb (12.0-16.0) g/dL Hct (36.0-46.0) % MCV (80.0-98.0) fL MCH (27.0-32.0) pg MCHC (31.0-37.0) g/dL RDW Std Deviation (28.0-62.0) fl RDW Coeff of Deniz (11.0-15.0) % Plt Count (150-400) K/uL MPV (7.40-12.00) fL Neut % (Auto) (48.0-80.0) % Lymph % (Auto) (16.0-40.0) % [place] % (Auto) (0.0-15.0) % Eos % (Auto) (0.0-7.0) % Baso % (Auto) (0.0-1.5) % Neut # (Auto) (1.4-5.7) K/uL Lymph # (Auto) (0.6-2.4) K/uL [place] # (Auto) (0.0-0.8) K/uL Eos # (Auto) (0.0-0.7) K/uL Baso # (Auto) (0.0-0.1) K/uL Nucleated RBC % /100WBC Nucleated RBCs # K/uL D-Dimer, Quantitative 0.84 H (0.0-0.50) mg/L FEU Sodium 133 L (136-145) mmol/L Potassium 4.1 (3.5-5.1) mmol/L Chloride 92 L (98-107) mmol/L Carbon Dioxide 30.2 (21.0-32.0) mmol/L BUN 15 (7.0-18.0) mg/dL Creatinine 0.7 (0.6-1.0) mg/dL Est Cr Clr Drug Dosing 84.15 mL/min Estimated GFR (MDRD) > 60.0 ml/min Glucose 344 H (74-106) mg/dL POC Glucose 346 H (70-99) mg/dL Calcium 8.5 (8.5-10.1) mg/dL Total Bilirubin 0.4 (0.2-1.0) mg/dL Direct Bilirubin 0.10 (0.0-0.5) mg/dL AST 24 (15-37) IU/L ALT 26 (14-63) IU/L Alkaline Phosphatase 83 (46-116) U/L Total Protein 7.7 (6.4-8.2) g/dL Albumin 2.8 L (3.4-5.0) g/dL Globulin 4.9 H (2.6-4.0) g/dL Albumin/Globulin Ratio 0.6 L (0.9-1.6) 09/19/21 09/19/21 09/19/21 Range/Units 06:40 07:14 07:14 WBC 6.82 (4.0-11.0) K/uL RBC 4.85 (4.30-5.90) M/uL Hgb 14.1 (12.0-16.0) g/dL Hct 42.5 (36.0-46.0) % MCV 87.6 (80.0-98.0) fL MCH 29.1 (27.0-32.0) pg MCHC 33.2 (31.0-37.0) g/dL RDW Std Deviation 40.4 (28.0-62.0) fl RDW Coeff of Deniz 13 (11.0-15.0) % Plt Count 212 (150-400) K/uL MPV 10.50 (7.40-12.00) fL Neut % (Auto) 70.3 (48.0-80.0) % Lymph % (Auto) 21.4 (16.0-40.0) % [place] % (Auto) 8.1 (0.0-15.0) % Eos % (Auto) 0.1 (0.0-7.0) % Baso % (Auto) 0.1 (0.0-1.5) % Neut # (Auto) 4.8 (1.4-5.7) K/uL Lymph # (Auto) 1.5 (0.6-2.4) K/uL [place] # (Auto) 0.6 (0.0-0.8) K/uL Eos # (Auto) 0.0 (0.0-0.7) K/uL Baso # (Auto) 0.0 (0.0-0.1) K/uL Nucleated RBC % 0.0 /100WBC Nucleated RBCs # 0 K/uL D-Dimer, Quantitative (0.0-0.50) mg/L FEU Sodium 136 (136-145) mmol/L Potassium 3.7 (3.5-5.1) mmol/L Chloride 95 L (98-107) mmol/L Carbon Dioxide 26.9 (21.0-32.0) mmol/L BUN 14 (7.0-18.0) mg/dL Creatinine 0.6 (0.6-1.0) mg/dL Est Cr Clr Drug Dosing 98.18 mL/min Estimated GFR (MDRD) > 60.0 ml/min Glucose 339 H (74-106) mg/dL POC Glucose 289 H (70-99) mg/dL Calcium 8.9 (8.5-10.1) mg/dL Total Bilirubin (0.2-1.0) mg/dL Direct Bilirubin (0.0-0.5) mg/dL AST (15-37) IU/L ALT (14-63) IU/L Alkaline Phosphatase (46-116) U/L Total Protein (6.4-8.2) g/dL Albumin (3.4-5.0) g/dL Globulin (2.6-4.0) g/dL Albumin/Globulin Ratio (0.9-1.6) 09/19/21 Range/Units 12:13 WBC (4.0-11.0) K/uL RBC (4.30-5.90) M/uL Hgb (12.0-16.0) g/dL Hct (36.0-46.0) % MCV (80.0-98.0) fL MCH (27.0-32.0) pg MCHC (31.0-37.0) g/dL RDW Std Deviation (28.0-62.0) fl RDW Coeff of Deniz (11.0-15.0) % Plt Count (150-400) K/uL MPV (7.40-12.00) fL Neut % (Auto) (48.0-80.0) % Lymph % (Auto) (16.0-40.0) % [place] % (Auto) (0.0-15.0) % Eos % (Auto) (0.0-7.0) % Baso % (Auto) (0.0-1.5) % Neut # (Auto) (1.4-5.7) K/uL Lymph # (Auto) (0.6-2.4) K/uL [place] # (Auto) (0.0-0.8) K/uL Eos # (Auto) (0.0-0.7) K/uL Baso # (Auto) (0.0-0.1) K/uL Nucleated RBC % /100WBC Nucleated RBCs # K/uL D-Dimer, Quantitative (0.0-0.50) mg/L FEU Sodium (136-145) mmol/L Potassium (3.5-5.1) mmol/L Chloride (98-107) mmol/L Carbon Dioxide (21.0-32.0) mmol/L BUN (7.0-18.0) mg/dL Creatinine (0.6-1.0) mg/dL Est Cr Clr Drug Dosing mL/min Estimated GFR (MDRD) ml/min Glucose (74-106) mg/dL POC Glucose 341 H (70-99) mg/dL Calcium (8.5-10.1) mg/dL Total Bilirubin (0.2-1.0) mg/dL Direct Bilirubin (0.0-0.5) mg/dL AST (15-37) IU/L ALT (14-63) IU/L Alkaline Phosphatase (46-116) U/L Total Protein (6.4-8.2) g/dL Albumin (3.4-5.0) g/dL Globulin (2.6-4.0) g/dL Albumin/Globulin Ratio (0.9-1.6) Result Diagrams: 09/19/21 07:14 09/19/21 07:14 Sepsis Event Note - Evaluation Sepsis Screening Result: No Definite Risk - Focused Exam Vital Signs: Vital Signs Temp Pulse Resp BP Pulse Ox 09/19/21 12:37 89 L 09/19/21 12:00 97.4 F 83 20 99/50 L 09/19/21 08:36 91 L 09/19/21 07:45 97.4 F 76 20 112/71 90 L 09/19/21 03:47 97.2 F 70 20 118/76 91 L - Problem List & Annotations (1) COVID-19 virus infection SNOMED Code(s): 427458636 Code(s): U07.1 - COVID-19 Status: Acute Current Visit: Yes (2) Full code status SNOMED Code(s): 999637773 Code(s): Z78.9 - OTHER SPECIFIED HEALTH STATUS Status: Acute Current Visit: Yes (3) Newly diagnosed diabetes SNOMED Code(s): 854800073, 719427355 Code(s): E11.9 - TYPE 2 DIABETES MELLITUS WITHOUT COMPLICATIONS Status: Acute Current Visit: Yes (4) Obesity (BMI 30-39.9) SNOMED Code(s): 620084410, 824455352 Code(s): E66.9 - OBESITY, UNSPECIFIED Status: Acute Current Visit: Yes (5) HTN (hypertension) SNOMED Code(s): 91747137 Code(s): I10 - ESSENTIAL (PRIMARY) HYPERTENSION Status: Acute Current Visit: Yes (6) Acute hypoxemic respiratory failure due to COVID-19 SNOMED Code(s): 768737662 Code(s): U07.1 - COVID-19; J96.01 - ACUTE RESPIRATORY FAILURE WITH HYPOXIA Status: Acute Current Visit: Yes - Problem List Review Problem List Initiated/Reviewed/Updated: Yes - My Orders Last 24 Hours: My Active Orders 09/18/21 14:53 Oxygen Therapy [RC] PRN Pulse Oximetry [RC] CONTINUOUS Up ad Sarah [RC] ASDIRECTED VTE/DVT Education [RC] PER UNIT ROUTINE Vital Signs [RC] Q4H Ondansetron [Zofran ODT] 4 mg PO Q4H PRN Resuscitation Status Routine 09/18/21 14:58 RT Aerosol Therapy [RC] ASDIRECTED 09/18/21 14:59 Communication Order [RC] ROUTINE RT Incentive Spirometry [RC] Q1HWA 09/18/21 15:00 Albuterol/Ipratropium [DuoNeb 3.0-0.5 MG/3 ML] 3 ml NEB Q4HRRT Enoxaparin [Lovenox] 40 mg SUBCUT Q24H 09/18/21 18:12 Blood Glucose Check, Bedside [RC] WITHMEALSANDBED 09/18/21 18:20 Dextrose 50% in Water 50 ml IVPUSH ASDIRECTED PRN Glucagon,Human Recombinant [GlucaGen] 1 mg IM ASDIRECTED PRN 09/19/[address] [place] [employer] Diet [DIET] 09/19/21 07:30 Insulin Aspart [NovoLOG] See Protocol SUBCUT TIDAC 09/19/21 09:00 Citalopram [Celexa] 20 mg PO DAILY Remdesivir 100 mg Sodium Chloride 0.9% [Normal Saline AdvBag] 100 ml IV Q24H 09/19/21 14:04 Acetaminophen [TylenoL] 650 mg PO Q4H PRN 09/19/21 14:15 Fluticasone Propionate [Flonase] 1 spray NASBOTH BID Insulin Glarg,Human.Rec.Analog [LantUS Solostar] 10 units SUBCUT BID 09/19/21 15:00 BILIRUBIN DIRECT [CHEM] DAILY COMPREHENSIVE METABOLIC PN,CMP [CHEM] DAILY 09/20/21 15:00 BILIRUBIN DIRECT [CHEM] DAILY COMPREHENSIVE METABOLIC PN,CMP [CHEM] DAILY 09/21/21 15:00 BILIRUBIN DIRECT [CHEM] DAILY COMPREHENSIVE METABOLIC PN,CMP [CHEM] DAILY 09/22/21 15:00 BILIRUBIN DIRECT [CHEM] DAILY COMPREHENSIVE METABOLIC PN,CMP [CHEM] DAILY - Plan Plan:: Acute hypoxemic respiratory failure due to COVID 19 Continue with Oxygen supplementation. Wean down as tolerated. Decadron day 2 of 10 , Remdesivir day 2 of 5 Proning. Incentive spirometry Anticoagulation with SQ lovenox. Morbid obesity lifestyle modification T2DM ivis Cisneros Full code status.
[2021-09-19] MEDS: Fluticasone Propionate Nasal Spray 16 GM Bottle NASBOTH SCH ×2 (14:54→20:53)
[2021-09-19] MEDS: Enoxaparin 40 MG/0.4 ML Syringe SUBCUT SCH (14:55)
[2021-09-19] MEDS: Insulin Glargine,Human Rec. Analog 100 Units/ML 3 ML Pen SUBCUT SCH ×2 (14:56→20:53)
[2021-09-19 15:36] LABS: BLOOD UREA NITROGEN,BUN 14 mg/dL (7.0-18.0); CARBON DIOXIDE,CO2 35.8 mmol/L (21.0-32.0); CHLORIDE,CL 95 mmol/L (98-107); GLUCOSE RANDOM 328 mg/dL (74-106); POTASSIUM,K 3.3 mmol/L (3.5-5.1); SODIUM,NA 136 mmol/L (136-145)
[2021-09-19] MEDS ORDERED: Potassium Chloride 20 MEQ Tab.ER PO ONE (15:53)
[2021-09-20] MEDS: Albuterol/Ipratropium 3.0-0.5 MG/3 ML Neb Soln NEB SCH ×6 (01:31→21:43)
[2021-09-20] MEDS: Insulin Aspart 100 Units/ML 3 ML Pen SUBCUT SCH ×3 (08:29→17:31)
[2021-09-20] MEDS: Citalopram 20 MG Tab PO SCH (08:31)
[2021-09-20] MEDS: Insulin Glargine,Human Rec. Analog 100 Units/ML 3 ML Pen SUBCUT SCH ×2 (08:34→21:37)
[2021-09-20] MEDS: Fluticasone Propionate Nasal Spray 16 GM Bottle NASBOTH SCH ×2 (08:36→21:37)
[2021-09-20] MEDS: REMDESIVIR 100 MG in Sodium Chloride 0.9% 100 ML IV SCH (08:36)
[2021-09-20] MEDS: Acetaminophen 325 MG Tab PO PRN ×2 (08:37→21:37)
[2021-09-20] MEDS: Ondansetron 4 MG/2 ML SDV IVPUSH PRN (08:39)
[2021-09-20] MEDS: Enoxaparin 40 MG/0.4 ML Syringe SUBCUT SCH (15:13)
[2021-09-20 15:36] LABS: BLOOD UREA NITROGEN,BUN 7 mg/dL (7.0-18.0); CARBON DIOXIDE,CO2 35.3 mmol/L (21.0-32.0); CHLORIDE,CL 100 mmol/L (98-107); GLUCOSE RANDOM 214 mg/dL (74-106); POTASSIUM,K 3.5 mmol/L (3.5-5.1); SODIUM,NA 140 mmol/L (136-145)
--- NOTE | 2021-09-20 16:26 | PCM.PN ---
- General Info Date of Service: 09/20/21 Admission Dx/Problem (Free Text): Pt is on HFNC today. 50 L and 80% FIO2. She feels a bit more energetic today compared to yesterday. - Patient Data Vitals - Most Recent: Last Vital Signs Temp 98.1 F 09/20/21 12:00 Pulse 82 09/20/21 12:00 Resp 20 09/20/21 12:00 BP 112/68 09/20/21 12:00 Pulse Ox 91 L 09/20/21 14:00 Weight - Most Recent: 243 lb 9.6 oz I&O - Last 24 Hours: Intake & Output 09/20/21 09/20/21 09/20/21 06:59 14:59 22:59 Intake Total 850 Output Total 900 Balance -50 Lab Results Last 24 Hours: Laboratory Results - last 24 hr 09/19/21 09/19/21 09/20/21 Range/Units 16:59 20:52 06:32 Sodium (136-145) mmol/L Potassium (3.5-5.1) mmol/L Chloride (98-107) mmol/L Carbon Dioxide (21.0-32.0) mmol/L BUN (7.0-18.0) mg/dL Creatinine (0.6-1.0) mg/dL Est Cr Clr Drug Dosing mL/min Estimated GFR (MDRD) ml/min Glucose (74-106) mg/dL POC Glucose 268 H 226 H 165 H (70-99) mg/dL Calcium (8.5-10.1) mg/dL Total Bilirubin (0.2-1.0) mg/dL Direct Bilirubin (0.0-0.5) mg/dL AST (15-37) IU/L ALT (14-63) IU/L Alkaline Phosphatase (46-116) U/L Total Protein (6.4-8.2) g/dL Albumin (3.4-5.0) g/dL Globulin (2.6-4.0) g/dL Albumin/Globulin Ratio (0.9-1.6) 09/20/21 Range/Units 15:00 Sodium 140 (136-145) mmol/L Potassium 3.5 (3.5-5.1) mmol/L Chloride 100 (98-107) mmol/L Carbon Dioxide 35.3 H (21.0-32.0) mmol/L BUN 7 (7.0-18.0) mg/dL Creatinine 0.7 (0.6-1.0) mg/dL Est Cr Clr Drug Dosing 84.15 mL/min Estimated GFR (MDRD) > 60.0 ml/min Glucose 214 H (74-106) mg/dL POC Glucose (70-99) mg/dL Calcium 8.4 L (8.5-10.1) mg/dL Total Bilirubin 0.3 (0.2-1.0) mg/dL Direct Bilirubin 0.10 (0.0-0.5) mg/dL AST 21 (15-37) IU/L ALT 18 (14-63) IU/L Alkaline Phosphatase 74 (46-116) U/L Total Protein 6.7 (6.4-8.2) g/dL Albumin 2.7 L (3.4-5.0) g/dL Globulin 4.0 (2.6-4.0) g/dL Albumin/Globulin Ratio 0.7 L (0.9-1.6) Med Orders - Current: Current Medications Acetaminophen (Acetaminophen 325 Mg Tab) 650 mg PO Q4H PRN PRN Reason: Pain (Mild 1-3)/fever Last Admin: 09/20/21 08:37 Dose: 650 mg Documented by: Albuterol/Ipratropium (Albuterol/Ipratropium 3.0-0.5 Mg/3 Ml Neb Soln) 3 ml NEB Q4HRRT [facility] Last Admin: 09/20/21 13:37 Dose: 3 ml Documented by: Citalopram Hydrobromide (Citalopram 20 Mg Tab) 20 mg PO DAILY [facility] Last Admin: 09/20/21 08:31 Dose: 20 mg Documented by: Dexamethasone (Dexamethasone 4 Mg Tab) 6 mg PO DAILY [facility] Stop: 09/29/21 16:31 Dextrose/Water (50% Dextrose In Water 50 Ml Syringe) 50 ml IVPUSH ASDIRECTED P RN PRN Reason: Hypoglycemia Enoxaparin Sodium (Enoxaparin 40 Mg/0.4 Ml Syringe) 40 mg SUBCUT Q24H [facility] Last Admin: 09/20/21 15:13 Dose: 40 mg Documented by: Fluticasone Propionate (Fluticasone Propionate Nasal [place] 16 Gm Bottle) 0 gm NASBOTH BID [facility] Last Admin: 09/20/21 08:36 Dose: 2 spray Documented by: Glucagon (Glucagon,Human Recombinant 1 Mg Vial) 1 mg IM ASDIRECTED PRN PRN Reason: Hypoglycemia Remdesivir 100 mg/ Sodium (Chloride) 100 mls @ 100 mls/hr IV Q24H [facility] Stop: 09/22/21 09:59 Last Admin: 09/20/21 08:36 Dose: 100 mls/hr Documented by: Insulin Aspart (Insulin Aspart 100 Units/Ml 3 Ml Pen) 0 unit SUBCUT TIDAC [facility]; Protocol Last Admin: 09/20/21 12:56 Dose: Not Given Documented by: Insulin Glargine (Insulin Glargine,Human Rec. Analog 100 Units/Ml 3 Ml Pen) 10 units SUBCUT BID [facility] Last Admin: 09/20/21 08:34 Dose: 10 unit Documented by: Ondansetron HCl (Ondansetron 4 Mg/2 Ml Sdv) 4 mg IVPUSH Q4H PRN PRN Reason: Nausea/Vomiting Last Admin: 09/20/21 08:39 Dose: 4 mg Documented by: Ondansetron HCl (Ondansetron 4 Mg Tab.Dis) 4 mg PO Q4H PRN PRN Reason: nausea, able to take PO Discontinued Medications Acetaminophen (Acetaminophen 325 Mg Tab) 650 mg PO Q4H PRN PRN Reason: Pain Last Admin: 09/19/21 08:13 Dose: 650 mg Documented by: Aspirin (Aspirin 81 Mg Tab.Chew) 324 mg PO ONETIME ONE Stop: 09/18/21 01:38 Last Admin: 09/18/21 01:50 Dose: 324 mg Documented by: Dexamethasone (Dexamethasone 4 Mg Tab) 6 mg PO ONETIME ONE Stop: 09/18/21 02:12 Last Admin: 09/18/21 02:22 Dose: 6 mg Documented by: Dextrose/Water (50% Dextrose In Water 50 Ml Syringe) 50 ml IVPUSH ASDIRECTED PRN PRN Reason: Hypoglycemia Glucagon (Glucagon,Human Recombinant 1 Mg Vial) 1 mg IM ASDIRECTED PRN PRN Reason: Hypoglycemia Lactated Ringer's (Ringers, Lactated) 1,000 mls @ 999 mls/hr IV .BOLUS ONE Stop: 09/18/21 02:37 Last Admin: 09/18/21 01:50 Dose: 999 mls/hr Documented by: Remdesivir 200 mg/ Sodium (Chloride) 250 mls @ 250 mls/hr IV ONETIME ONE Stop: 09/18/21 02:13 Last Admin: 09/18/21 03:00 Dose: 250 mls/hr Documented by: Lactated Ringer's (Ringers, Lactated) 1,000 mls @ 125 mls/hr IV ASDIRECTED [facility] Last Admin: 09/18/21 03:00 Dose: 125 mls/hr Documented by: Insulin Glargine (Insulin Glargine,Human Rec. Analog 100 Units/Ml 3 Ml Pen) 10 units SUBCUT BEDTIME [facility] Last Admin: 09/18/21 21:23 Dose: 10 units Documented by: Iopamidol (Iopamidol 755 Mg/Ml 500 Ml Multipack Bottle) 100 ml IVPUSH ONETIME ONE Stop: 09/18/21 17:03 Last Admin: 09/18/21 17:03 Dose: 100 ml Documented by: Ketorolac Tromethamine (Ketorolac 15 Mg/Ml Sdv) 15 mg IM ONETIME ONE Stop: 09/18/21 01:38 Last Admin: 09/18/21 01:53 Dose: Not Given Documented by: Ketorolac Tromethamine (Ketorolac 15 Mg/Ml Sdv) 15 mg IVPUSH NOW STA Stop: 09/18/21 01:46 Last Admin: 09/18/21 01:50 Dose: 15 mg Documented by: Potassium Chloride (Potassium Chloride 10% 20 Meq/15 Ml Soln 30 Ml Ud Cup) 40 meq PO ONETIME ONE Stop: 09/18/21 02:14 Last Admin: 09/18/21 02:22 Dose: 40 meq Documented by: Potassium Chloride (Potassium Chloride 20 Meq Tab.Er) 40 meq PO ONETIME ONE Stop: 09/19/21 15:54 Last Admin: 09/19/21 16:19 Dose: 40 meq Documented by: - Patient Data Lab Results Last 24 hrs: Laboratory Results - last 24 hr 09/19/21 09/19/21 09/20/21 Range/Units 16:59 20:52 06:32 Sodium (136-145) mmol/L Potassium (3.5-5.1) mmol/L Chloride (98-107) mmol/L Carbon Dioxide (21.0-32.0) mmol/L BUN (7.0-18.0) mg/dL Creatinine (0.6-1.0) mg/dL Est Cr Clr Drug Dosing mL/min Estimated GFR (MDRD) ml/min Glucose (74-106) mg/dL POC Glucose 268 H 226 H 165 H (70-99) mg/dL Calcium (8.5-10.1) mg/dL Total Bilirubin (0.2-1.0) mg/dL Direct Bilirubin (0.0-0.5) mg/dL AST (15-37) IU/L ALT (14-63) IU/L Alkaline Phosphatase (46-116) U/L Total Protein (6.4-8.2) g/dL Albumin (3.4-5.0) g/dL Globulin (2.6-4.0) g/dL Albumin/Globulin Ratio (0.9-1.6) 09/20/21 Range/Units 15:00 Sodium 140 (136-145) mmol/L Potassium 3.5 (3.5-5.1) mmol/L Chloride 100 (98-107) mmol/L Carbon Dioxide 35.3 H (21.0-32.0) mmol/L BUN 7 (7.0-18.0) mg/dL Creatinine 0.7 (0.6-1.0) mg/dL Est Cr Clr Drug Dosing 84.15 mL/min Estimated GFR (MDRD) > 60.0 ml/min Glucose 214 H (74-106) mg/dL POC Glucose (70-99) mg/dL Calcium 8.4 L (8.5-10.1) mg/dL Total Bilirubin 0.3 (0.2-1.0) mg/dL Direct Bilirubin 0.10 (0.0-0.5) mg/dL AST 21 (15-37) IU/L ALT 18 (14-63) IU/L Alkaline Phosphatase 74 (46-116) U/L Total Protein 6.7 (6.4-8.2) g/dL Albumin 2.7 L (3.4-5.0) g/dL Globulin 4.0 (2.6-4.0) g/dL Albumin/Globulin Ratio 0.7 L (0.9-1.6) Result Diagrams: 09/19/21 07:14 09/20/21 15:00 Sepsis Event Note - Evaluation Sepsis Screening Result: No Definite Risk - Focused Exam Vital Signs: Vital Signs Temp Pulse Resp BP Pulse Ox 09/20/21 14:00 91 L 09/20/21 12:00 98.1 F 82 20 112/68 92 L 09/20/21 08:21 97.8 F 83 20 100/59 L 91 L - Problem List & Annotations (1) COVID-19 virus infection SNOMED Code(s): 085752749 Code(s): U07.1 - COVID-19 Status: Acute Current Visit: Yes (2) Full code status SNOMED Code(s): 454860823 Code(s): Z78.9 - OTHER SPECIFIED HEALTH STATUS Status: Acute Current Visit: Yes (3) Newly diagnosed diabetes SNOMED Code(s): 897031895, 027032027 Code(s): E11.9 - TYPE 2 DIABETES MELLITUS WITHOUT COMPLICATIONS Status: Acute Current Visit: Yes (4) Obesity (BMI 30-39.9) SNOMED Code(s): 969606223, 082281090 Code(s): E66.9 - OBESITY, UNSPECIFIED Status: Acute Current Visit: Yes (5) HTN (hypertension) SNOMED Code(s): 41115877 Code(s): I10 - ESSENTIAL (PRIMARY) HYPERTENSION Status: Acute Current Visit: Yes (6) Acute hypoxemic respiratory failure due to COVID-19 SNOMED Code(s): 607812585 Code(s): U07.1 - COVID-19; J96.01 - ACUTE RESPIRATORY FAILURE WITH HYPOXIA Status: Acute Current Visit: Yes - Problem List Review Problem List Initiated/Reviewed/Updated: Yes - My Orders Last 24 Hours: My Active Orders 09/20/21 16:30 dexAMETHasone 6 mg PO DAILY 09/21/21 15:00 BILIRUBIN DIRECT [CHEM] DAILY COMPREHENSIVE METABOLIC PN,CMP [CHEM] DAILY 09/22/21 15:00 BILIRUBIN DIRECT [CHEM] DAILY COMPREHENSIVE METABOLIC PN,CMP [CHEM] DAILY - Plan Plan:: Acute hypoxemic respiratory failure due to COVID 19 Continue with Oxygen supplementation. Wean down as tolerated. Continue to encourage proning. Incentive spirometry COVID 19 pneumonia Pt is on Decadron day# 3 of 10, Remdesivir day # 3 of 5 and lovenox. Anticoagulation with SQ lovenox. Morbid obesity lifestyle modification T2DM Accuchecks, lantus Full code status.
[2021-09-20] MEDS: Dexamethasone 4 MG Tab PO SCH (17:21)
[2021-09-21] MEDS: Albuterol/Ipratropium 3.0-0.5 MG/3 ML Neb Soln NEB SCH ×6 (02:12→21:53)
[2021-09-21] MEDS: Insulin Glargine,Human Rec. Analog 100 Units/ML 3 ML Pen SUBCUT SCH ×3 (07:49→21:54)
[2021-09-21] MEDS: Insulin Aspart 100 Units/ML 3 ML Pen SUBCUT SCH ×3 (07:51→17:40)
[2021-09-21] MEDS: Dexamethasone 4 MG Tab PO SCH (09:10)
[2021-09-21] MEDS: Citalopram 20 MG Tab PO SCH (09:10)
[2021-09-21] MEDS: Fluticasone Propionate Nasal Spray 16 GM Bottle NASBOTH SCH ×2 (09:11→22:10)
[2021-09-21] MEDS: REMDESIVIR 100 MG in Sodium Chloride 0.9% 100 ML IV SCH (09:13)
--- NOTE | 2021-09-21 13:11 | PCM.PN ---
- General Info Date of Service: 09/21/21 - Review of Systems Systems Review Comment:: reports shortness of breath with walking, been laying on side - Patient Data Vitals - Most Recent: Last Vital Signs Temp 36.3 C 09/21/21 11:56 Pulse 66 09/21/21 11:56 Resp 20 09/21/21 11:56 BP 123/81 09/21/21 11:56 Pulse Ox 90 L 09/21/21 11:56 Weight - Most Recent: 110.495 kg I&O - Last 24 Hours: Intake & Output 09/20/21 09/21/21 09/21/21 22:59 06:59 14:59 Intake Total 300 900 Output Total 600 1100 Balance -300 -200 Lab Results Last 24 Hours: Laboratory Results - last 24 hr 09/20/21 09/20/21 09/20/21 Range/Units 15:00 17:26 21:34 Sodium 140 (136-145) mmol/L Potassium 3.5 (3.5-5.1) mmol/L Chloride 100 (98-107) mmol/L Carbon Dioxide 35.3 H (21.0-32.0) mmol/L BUN 7 (7.0-18.0) mg/dL Creatinine 0.7 (0.6-1.0) mg/dL Est Cr Clr Drug Dosing 84.15 mL/min Estimated GFR (MDRD) > 60.0 ml/min Glucose 214 H (74-106) mg/dL POC Glucose 194 H 289 H (70-99) mg/dL Calcium 8.4 L (8.5-10.1) mg/dL Total Bilirubin 0.3 (0.2-1.0) mg/dL Direct Bilirubin 0.10 (0.0-0.5) mg/dL AST 21 (15-37) IU/L ALT 18 (14-63) IU/L Alkaline Phosphatase 74 (46-116) U/L Total Protein 6.7 (6.4-8.2) g/dL Albumin 2.7 L (3.4-5.0) g/dL Globulin 4.0 (2.6-4.0) g/dL Albumin/Globulin Ratio 0.7 L (0.9-1.6) 09/21/21 09/21/21 Range/Units 06:50 11:45 Sodium (136-145) mmol/L Potassium (3.5-5.1) mmol/L Chloride (98-107) mmol/L Carbon Dioxide (21.0-32.0) mmol/L BUN (7.0-18.0) mg/dL Creatinine (0.6-1.0) mg/dL Est Cr Clr Drug Dosing mL/min Estimated GFR (MDRD) ml/min Glucose (74-106) mg/dL POC Glucose 300 H 232 H (70-99) mg/dL Calcium (8.5-10.1) mg/dL Total Bilirubin (0.2-1.0) mg/dL Direct Bilirubin (0.0-0.5) mg/dL AST (15-37) IU/L ALT (14-63) IU/L Alkaline Phosphatase (46-116) U/L Total Protein (6.4-8.2) g/dL Albumin (3.4-5.0) g/dL Globulin (2.6-4.0) g/dL Albumin/Globulin Ratio (0.9-1.6) Med Orders - Current: Current Medications Acetaminophen (Acetaminophen 325 Mg Tab) 650 mg PO Q4H PRN PRN Reason: Pain (Mild 1-3)/fever Last Admin: 09/20/21 21:37 Dose: 650 mg Documented by: Albuterol/Ipratropium (Albuterol/Ipratropium 3.0-0.5 Mg/3 Ml Neb Soln) 3 ml NEB Q4HRRT [facility] Last Admin: 09/21/21 09:55 Dose: 3 ml Documented by: Baricitinib (Baricitinib 2 Mg Tab) 4 mg PO Q24H [facility] Citalopram Hydrobromide (Citalopram 20 Mg Tab) 20 mg PO DAILY [facility] Last Admin: 09/21/21 09:10 Dose: 20 mg Documented by: Dexamethasone (Dexamethasone 4 Mg Tab) 6 mg PO DAILY [facility] Stop: 09/29/21 16:31 Last Admin: 09/21/21 09:10 Dose: 6 mg Documented by: Dextrose/Water (50% Dextrose In Water 50 Ml Syringe) 50 ml IVPUSH ASDIRECTED PRN PRN Reason: Hypoglycemia Enoxaparin Sodium (Enoxaparin 40 Mg/0.4 Ml Syringe) 40 mg SUBCUT Q24H [facility] Last Admin: 09/20/21 15:13 Dose: 40 mg Documented by: Fluticasone Propionate (Fluticasone Propionate Nasal [place] 16 Gm Bottle) 0 gm NASBOTH BID [facility] Last Admin: 09/21/21 09:11 Dose: 1 spray Documented by: Glucagon (Glucagon,Human Recombinant 1 Mg Vial) 1 mg IM ASDIRECTED PRN PRN Reason: Hypoglycemia Remdesivir 100 mg/ Sodium (Chloride) 100 mls @ 100 mls/hr IV Q24H [facility] Stop: 09/22/21 09:59 Last Admin: 09/21/21 09:13 Dose: 100 mls/hr Documented by: Insulin Aspart (Insulin Aspart 100 Units/Ml 3 Ml Pen) 0 unit SUBCUT TIDAC [facility]; Protocol Last Admin: 09/21/21 12:52 Dose: 2 units Documented by: Insulin Glargine (Insulin Glargine,Human Rec. Analog 100 Units/Ml 3 Ml Pen) 10 units SUBCUT BID [facility] Last Admin: 09/21/21 09:11 Dose: 10 unit Documented by: Ondansetron HCl (Ondansetron 4 Mg/2 Ml Sdv) 4 mg IVPUSH Q4H PRN PRN Reason: Nausea/Vomiting Last Admin: 09/20/21 08:39 Dose: 4 mg Documented by: Ondansetron HCl (Ondansetron 4 Mg Tab.Dis) 4 mg PO Q4H PRN PRN Reason: nausea, able to take PO Discontinued Medications Acetaminophen (Acetaminophen 325 Mg Tab) 650 mg PO Q4H PRN PRN Reason: Pain Last Admin: 09/19/21 08:13 Dose: 650 mg Documented by: Aspirin (Aspirin 81 Mg Tab.Chew) 324 mg PO ONETIME ONE Stop: 09/18/21 01:38 Last Admin: 09/18/21 01:50 Dose: 324 mg Documented by: Dexamethasone (Dexamethasone 4 Mg Tab) 6 mg PO ONETIME ONE Stop: 09/18/21 02:12 Last Admin: 09/18/21 02:22 Dose: 6 mg Documented by: Dextrose/Water (50% Dextrose In Water 50 Ml Syringe) 50 ml IVPUSH ASDIRECTED PRN PRN Reason: Hypoglycemia Glucagon (Glucagon,Human Recombinant 1 Mg Vial) 1 mg IM ASDIRECTED PRN PRN Reason: Hypoglycemia Lactated Ringer's (Ringers, Lactated) 1,000 mls @ 999 mls/hr IV .BOLUS ONE Stop: 09/18/21 02:37 Last Admin: 09/18/21 01:50 Dose: 999 mls/hr Documented by: Remdesivir 200 mg/ Sodium (Chloride) 250 mls @ 250 mls/hr IV ONETIME ONE Stop: 09/18/21 02:13 Last Admin: 09/18/21 03:00 Dose: 250 mls/hr Documented by: Lactated Ringer's (Ringers, Lactated) 1,000 mls @ 125 mls/hr IV ASDIRECTED [facility] Last Admin: 09/18/21 03:00 Dose: 125 mls/hr Documented by: Insulin Glargine (Insulin Glargine,Human Rec. Analog 100 Units/Ml 3 Ml Pen) 10 units SUBCUT BEDTIME [facility] Last Admin: 09/18/21 21:23 Dose: 10 units Documented by: Iopamidol (Iopamidol 755 Mg/Ml 500 Ml Multipack Bottle) 100 ml IVPUSH ONETIME ONE Stop: 09/18/21 17:03 Last Admin: 09/18/21 17:03 Dose: 100 ml Documented by: Ketorolac Tromethamine (Ketorolac 15 Mg/Ml Sdv) 15 mg IM ONETIME ONE Stop: 09/18/21 01:38 Last Admin: 09/18/21 01:53 Dose: Not Given Documented by: Ketorolac Tromethamine (Ketorolac 15 Mg/Ml Sdv) 15 mg IVPUSH NOW STA Stop: 09/18/21 01:46 Last Admin: 09/18/21 01:50 Dose: 15 mg Documented by: Potassium Chloride (Potassium Chloride 10% 20 Meq/15 Ml Soln 30 Ml Ud Cup) 40 meq PO ONETIME ONE Stop: 09/18/21 02:14 Last Admin: 09/18/21 02:22 Dose: 40 meq Documented by: Potassium Chloride (Potassium Chloride 20 Meq Tab.Er) 40 meq PO ONETIME ONE Stop: 09/19/21 15:54 Last Admin: 09/19/21 16:19 Dose: 40 meq Documented by: - Exam General: Alert, Oriented Neck: Supple Lungs: Clear to Auscultation, Normal Respiratory Effort Cardiovascular: Regular Rate, Regular Rhythm GI/Abdominal Exam: Soft, Non-Tender, No Distention Extremities: Non-Tender, No Pedal Edema Skin: Warm, Dry, Intact Neurological: No New Focal Deficit - Patient Data Lab Results Last 24 hrs: Laboratory Results - last 24 hr 09/20/21 09/20/21 09/20/21 Range/Units 15:00 17:26 21:34 Sodium 140 (136-145) mmol/L Potassium 3.5 (3.5-5.1) mmol/L Chloride 100 (98-107) mmol/L Carbon Dioxide 35.3 H (21.0-32.0) mmol/L BUN 7 (7.0-18.0) mg/dL Creatinine 0.7 (0.6-1.0) mg/dL Est Cr Clr Drug Dosing 84.15 mL/min Estimated GFR (MDRD) > 60.0 ml/min Glucose 214 H (74-106) mg/dL POC Glucose 194 H 289 H (70-99) mg/dL Calcium 8.4 L (8.5-10.1) mg/dL Total Bilirubin 0.3 (0.2-1.0) mg/dL Direct Bilirubin 0.10 (0.0-0.5) mg/dL AST 21 (15-37) IU/L ALT 18 (14-63) IU/L Alkaline Phosphatase 74 (46-116) U/L Total Protein 6.7 (6.4-8.2) g/dL Albumin 2.7 L (3.4-5.0) g/dL Globulin 4.0 (2.6-4.0) g/dL Albumin/Globulin Ratio 0.7 L (0.9-1.6) 09/21/21 09/21/21 Range/Units 06:50 11:45 Sodium (136-145) mmol/L Potassium (3.5-5.1) mmol/L Chloride (98-107) mmol/L Carbon Dioxide (21.0-32.0) mmol/L BUN (7.0-18.0) mg/dL Creatinine (0.6-1.0) mg/dL Est Cr Clr Drug Dosing mL/min Estimated GFR (MDRD) ml/min Glucose (74-106) mg/dL POC Glucose 300 H 232 H (70-99) mg/dL Calcium (8.5-10.1) mg/dL Total Bilirubin (0.2-1.0) mg/dL Direct Bilirubin (0.0-0.5) mg/dL AST (15-37) IU/L ALT (14-63) IU/L Alkaline Phosphatase (46-116) U/L Total Protein (6.4-8.2) g/dL Albumin (3.4-5.0) g/dL Globulin (2.6-4.0) g/dL Albumin/Globulin Ratio (0.9-1.6) Result Diagrams: 09/19/21 07:14 09/20/21 15:00 Sepsis Event Note - Evaluation Sepsis Screening Result: No Definite Risk - Focused Exam Vital Signs: Vital Signs Temp Pulse Resp BP Pulse Ox 09/21/21 11:56 36.3 C 66 20 123/81 90 L 09/21/21 07:00 36.3 C 82 20 111/66 93 L 09/21/21 03:39 36.5 C 66 20 124/59 L 93 L 09/21/21 02:00 75 18 94 L - Problem List & Annotations (1) Acute hypoxemic respiratory failure due to COVID-19 SNOMED Code(s): 469185515 Code(s): U07.1 - COVID-19; J96.01 - ACUTE RESPIRATORY FAILURE WITH HYPOXIA Status: Acute Current Visit: Yes (2) COVID-19 virus infection SNOMED Code(s): 263495160 Code(s): U07.1 - COVID-19 Status: Acute Current Visit: Yes - Problem List Review Problem List Initiated/Reviewed/Updated: Yes - My Orders Last 24 Hours: My Active Orders 09/21/21 13:00 Baricitinib [Olumiant] 4 mg PO Q24H 09/21/21 13:07 CBC WITH AUTO DIFF [HEME] Routine COMPREHENSIVE METABOLIC PN,CMP [CHEM] Routine 09/22/21 05:11 CBC WITH AUTO DIFF [HEME] AM COMPREHENSIVE METABOLIC PN,CMP [CHEM] AM 09/23/21 05:11 CBC WITH AUTO DIFF [HEME] AM COMPREHENSIVE METABOLIC PN,CMP [CHEM] AM 09/24/21 05:11 CBC WITH AUTO DIFF [HEME] AM COMPREHENSIVE METABOLIC PN,CMP [CHEM] AM 09/25/21 05:11 CBC WITH AUTO DIFF [HEME] AM COMPREHENSIVE METABOLIC PN,CMP [CHEM] AM 09/26/21 05:11 CBC WITH AUTO DIFF [HEME] AM COMPREHENSIVE METABOLIC PN,CMP [CHEM] AM - Plan Plan:: Acute hypoxemic respiratory failure due to COVID 19 Hypoxia: on HHFNC COVID: on dexamethason and remdesivir. Due to the increasing need of oxygen will start barcitinib. The FDA EUA was explained and patient consented to its use T2DM: ivis Cisneros
[2021-09-21 14:30] LABS: BLOOD UREA NITROGEN,BUN 10 mg/dL (7.0-18.0); CARBON DIOXIDE,CO2 34.2 mmol/L (21.0-32.0); CHLORIDE,CL 97 mmol/L (98-107); GLUCOSE RANDOM 322 mg/dL (74-106); POTASSIUM,K 4.2 mmol/L (3.5-5.1); SODIUM,NA 137 mmol/L (136-145)
[2021-09-21] MEDS: Enoxaparin 40 MG/0.4 ML Syringe SUBCUT SCH (15:26)
[2021-09-21] MEDS: Melatonin 3 MG Tab PO PRN (21:54)
[2021-09-22] MEDS: Albuterol/Ipratropium 3.0-0.5 MG/3 ML Neb Soln NEB SCH ×6 (02:05→21:33)
[2021-09-22 07:33] LABS: BLOOD UREA NITROGEN,BUN 11 mg/dL (7.0-18.0); CARBON DIOXIDE,CO2 31.5 mmol/L (21.0-32.0); CHLORIDE,CL 99 mmol/L (98-107); GLUCOSE RANDOM 280 mg/dL (74-106); POTASSIUM,K 3.3 mmol/L (3.5-5.1); SODIUM,NA 138 mmol/L (136-145)
[2021-09-22] MEDS: Insulin Aspart 100 Units/ML 3 ML Pen SUBCUT SCH ×3 (09:06→17:44)
[2021-09-22] MEDS: Fluticasone Propionate Nasal Spray 16 GM Bottle NASBOTH SCH ×2 (09:08→21:32)
[2021-09-22] MEDS: Dexamethasone 4 MG Tab PO SCH (09:09)
[2021-09-22] MEDS: Citalopram 20 MG Tab PO SCH (09:09)
[2021-09-22] MEDS: Insulin Glargine,Human Rec. Analog 100 Units/ML 3 ML Pen SUBCUT SCH ×2 (09:11→21:33)
[2021-09-22] MEDS: REMDESIVIR 100 MG in Sodium Chloride 0.9% 100 ML IV SCH (09:12)
--- NOTE | 2021-09-22 13:25 | PCM.PN ---
- General Info Date of Service: 09/22/21 - Review of Systems Systems Review Comment:: short of breath with walking and talking on phone - Patient Data Vitals - Most Recent: Last Vital Signs Temp 36.3 C 09/22/21 12:00 Pulse 75 09/22/21 12:00 Resp 20 09/22/21 12:00 BP 133/88 09/22/21 12:00 Pulse Ox 95 09/22/21 12:00 Weight - Most Recent: 110.495 kg I&O - Last 24 Hours: Intake & Output 09/21/21 09/22/21 09/22/21 22:59 06:59 14:59 Intake Total 1020 1250 Output Total 1300 1150 Balance -280 100 Lab Results Last 24 Hours: Laboratory Results - last 24 hr 09/21/21 09/21/21 09/21/21 Range/Units 13:28 13:28 13:28 WBC 6.18 (4.0-11.0) K/uL RBC 4.47 (4.30-5.90) M/uL Hgb 13.3 (12.0-16.0) g/dL Hct 39.2 (36.0-46.0) % MCV 87.7 (80.0-98.0) fL MCH 29.8 (27.0-32.0) pg MCHC 33.9 (31.0-37.0) g/dL RDW Std Deviation 40.4 (28.0-62.0) fl RDW Coeff of Deniz 13 (11.0-15.0) % Plt Count 278 (150-400) K/uL MPV 9.50 (7.40-12.00) fL Add Manual Diff YES Neutrophils % (Manual) 66 (48.0-80.0) % Band Neutrophils % 10 % Lymphocytes % (Manual) 20 (16.0-40.0) % Monocytes % (Manual) 3 (0.0-15.0) % Eosinophils % (Manual) (0.0-7.0) % Basophils % (Manual) 1 (0.0-1.5) % Nucleated RBC % 0.0 /100WBC Absolute Seg Neuts 4.1 (1.4-5.7) Band Neutrophils # 0.6 Lymphocytes # (Manual) 1.2 (0.6-2.4) Monocytes # (Manual) 0.2 (0.0-0.8) Eosinophils # (Manual) (0.0-0.7) Basophils # (Manual) 0.1 (0.0-0.1) Nucleated RBCs # 0 K/uL Sodium 137 (136-145) mmol/L Potassium 4.2 (3.5-5.1) mmol/L Chloride 97 L (98-107) mmol/L Carbon Dioxide 34.2 H (21.0-32.0) mmol/L BUN 10 (7.0-18.0) mg/dL Creatinine 0.7 (0.6-1.0) mg/dL Est Cr Clr Drug Dosing 84.15 mL/min Estimated GFR (MDRD) > 60.0 ml/min Glucose 322 H (74-106) mg/dL POC Glucose (70-99) mg/dL Calcium 9.1 (8.5-10.1) mg/dL Total Bilirubin 0.3 (0.2-1.0) mg/dL AST 21 (15-37) IU/L ALT 19 (14-63) IU/L Alkaline Phosphatase 82 (46-116) U/L C-Reactive Protein 7.50 H (0.00-0.90) mg/dL Total Protein 7.3 (6.4-8.2) g/dL Albumin 3.0 L (3.4-5.0) g/dL Globulin 4.3 H (2.6-4.0) g/dL Albumin/Globulin Ratio 0.7 L (0.9-1.6) 09/21/21 09/21/21 09/22/21 Range/Units 17:21 21:44 06:12 WBC 6.86 (4.0-11.0) K/uL RBC 4.48 (4.30-5.90) M/uL Hgb 12.9 (12.0-16.0) g/dL Hct 39.4 (36.0-46.0) % MCV 87.9 (80.0-98.0) fL MCH 28.8 (27.0-32.0) pg MCHC 32.7 (31.0-37.0) g/dL RDW Std Deviation 40.5 (28.0-62.0) fl RDW Coeff of Deniz 13 (11.0-15.0) % Plt Count 329 (150-400) K/uL MPV 9.50 (7.40-12.00) fL Add Manual Diff YES Neutrophils % (Manual) 55 (48.0-80.0) % Band Neutrophils % 5 % Lymphocytes % (Manual) 32 (16.0-40.0) % Monocytes % (Manual) 6 (0.0-15.0) % Eosinophils % (Manual) 2 (0.0-7.0) % Basophils % (Manual) (0.0-1.5) % Nucleated RBC % 0.0 /100WBC Absolute Seg Neuts 3.8 (1.4-5.7) Band Neutrophils # 0.3 Lymphocytes # (Manual) 2.2 (0.6-2.4) Monocytes # (Manual) 0.4 (0.0-0.8) Eosinophils # (Manual) 0.1 (0.0-0.7) Basophils # (Manual) (0.0-0.1) Nucleated RBCs # 0 K/uL Sodium (136-145) mmol/L Potassium (3.5-5.1) mmol/L Chloride (98-107) mmol/L Carbon Dioxide (21.0-32.0) mmol/L BUN (7.0-18.0) mg/dL Creatinine (0.6-1.0) mg/dL Est Cr Clr Drug Dosing mL/min Estimated GFR (MDRD) ml/min Glucose (74-106) mg/dL POC Glucose 347 H 331 H (70-99) mg/dL Calcium (8.5-10.1) mg/dL Total Bilirubin (0.2-1.0) mg/dL AST (15-37) IU/L ALT (14-63) IU/L Alkaline Phosphatase (46-116) U/L C-Reactive Protein (0.00-0.90) mg/dL Total Protein (6.4-8.2) g/dL Albumin (3.4-5.0) g/dL Globulin (2.6-4.0) g/dL Albumin/Globulin Ratio (0.9-1.6) 09/22/21 09/22/21 09/22/21 Range/Units 06:12 06:31 12:13 WBC (4.0-11.0) K/uL RBC (4.30-5.90) M/uL Hgb (12.0-16.0) g/dL Hct (36.0-46.0) % MCV (80.0-98.0) fL MCH (27.0-32.0) pg MCHC (31.0-37.0) g/dL RDW Std Deviation (28.0-62.0) fl RDW Coeff of Deniz (11.0-15.0) % Plt Count (150-400) K/uL MPV (7.40-12.00) fL Add Manual Diff Neutrophils % (Manual) (48.0-80.0) % Band Neutrophils % % Lymphocytes % (Manual) (16.0-40.0) % Monocytes % (Manual) (0.0-15.0) % Eosinophils % (Manual) (0.0-7.0) % Basophils % (Manual) (0.0-1.5) % Nucleated RBC % /100WBC Absolute Seg Neuts (1.4-5.7) Band Neutrophils # Lymphocytes # (Manual) (0.6-2.4) Monocytes # (Manual) (0.0-0.8) Eosinophils # (Manual) (0.0-0.7) Basophils # (Manual) (0.0-0.1) Nucleated RBCs # K/uL Sodium 138 (136-145) mmol/L Potassium 3.3 L (3.5-5.1) mmol/L Chloride 99 (98-107) mmol/L Carbon Dioxide 31.5 (21.0-32.0) mmol/L BUN 11 (7.0-18.0) mg/dL Creatinine 0.7 (0.6-1.0) mg/dL Est Cr Clr Drug Dosing 84.15 mL/min Estimated GFR (MDRD) > 60.0 ml/min Glucose 280 H (74-106) mg/dL POC Glucose 251 H 273 H (70-99) mg/dL Calcium 9.1 (8.5-10.1) mg/dL Total Bilirubin 0.3 (0.2-1.0) mg/dL AST 22 (15-37) IU/L ALT 21 (14-63) IU/L Alkaline Phosphatase 71 (46-116) U/L C-Reactive Protein (0.00-0.90) mg/dL Total Protein 7.2 (6.4-8.2) g/dL Albumin 2.7 L (3.4-5.0) g/dL Globulin 4.5 H (2.6-4.0) g/dL Albumin/Globulin Ratio 0.6 L (0.9-1.6) Med Orders - Current: Current Medications Acetaminophen (Acetaminophen 325 Mg Tab) 650 mg PO Q4H PRN PRN Reason: Pain (Mild 1-3)/fever Last Admin: 09/20/21 21:37 Dose: 650 mg Documented by: Albuterol/Ipratropium (Albuterol/Ipratropium 3.0-0.5 Mg/3 Ml Neb Soln) 3 ml NEB Q4HRRT [facility] Last Admin: 09/22/21 09:28 Dose: 3 ml Documented by: Baricitinib (Baricitinib 2 Mg Tab) 4 mg PO Q24H [facility] Last Admin: 09/21/21 16:09 Dose: 4 mg Documented by: Citalopram Hydrobromide (Citalopram 20 Mg Tab) 20 mg PO DAILY [facility] Last Admin: 09/22/21 09:09 Dose: 20 mg Documented by: Dexamethasone (Dexamethasone 4 Mg Tab) 6 mg PO DAILY [facility] Stop: 09/29/21 16:31 Last Admin: 09/22/21 09:09 Dose: 6 mg Documented by: Dextrose/Water (50% Dextrose In Water 50 Ml Syringe) 50 ml IVPUSH ASDIRECTED PRN PRN Reason: Hypoglycemia Enoxaparin Sodium (Enoxaparin 40 Mg/0.4 Ml Syringe) 40 mg SUBCUT Q24H [facility] Last Admin: 09/21/21 15:26 Dose: 40 mg Documented by: Fluticasone Propionate (Fluticasone Propionate Nasal [place] 16 Gm Bottle) 0 gm NASBOTH BID [facility] Last Admin: 09/22/21 09:08 Dose: 1 spray Documented by: Glucagon (Glucagon,Human Recombinant 1 Mg Vial) 1 mg IM ASDIRECTED PRN PRN Reason: Hypoglycemia Insulin Aspart (Insulin Aspart 100 Units/Ml 3 Ml Pen) 0 unit SUBCUT TIDAC [facility]; Protocol Last Admin: 09/22/21 12:44 Dose: 3 units Documented by: Insulin Glargine (Insulin Glargine,Human Rec. Analog 100 Units/Ml 3 Ml Pen) 10 units SUBCUT BID GAGANDEEP Last Admin: 09/22/21 09:11 Dose: 10 unit Documented by: Melatonin (Melatonin 3 Mg Tab) 6 mg PO BEDTIME PRN PRN Reason: Insomnia Last Admin: 09/21/21 21:54 Dose: 6 mg Documented by: Ondansetron HCl (Ondansetron 4 Mg/2 Ml Sdv) 4 mg IVPUSH Q4H PRN PRN Reason: Nausea/Vomiting Last Admin: 09/20/21 08:39 Dose: 4 mg Documented by: Ondansetron HCl (Ondansetron 4 Mg Tab.Dis) 4 mg PO Q4H PRN PRN Reason: nausea, able to take PO Discontinued Medications Acetaminophen (Acetaminophen 325 Mg Tab) 650 mg PO Q4H PRN PRN Reason: Pain Last Admin: 09/19/21 08:13 Dose: 650 mg Documented by: Aspirin (Aspirin 81 Mg Tab.Chew) 324 mg PO ONETIME ONE Stop: 09/18/21 01:38 Last Admin: 09/18/21 01:50 Dose: 324 mg Documented by: Dexamethasone (Dexamethasone 4 Mg Tab) 6 mg PO ONETIME ONE Stop: 09/18/21 02:12 Last Admin: 09/18/21 02:22 Dose: 6 mg Documented by: Dextrose/Water (50% Dextrose In Water 50 Ml Syringe) 50 ml IVPUSH ASDIRECTED PRN PRN Reason: Hypoglycemia Glucagon (Glucagon,Human Recombinant 1 Mg Vial) 1 mg IM ASDIRECTED PRN PRN Reason: Hypoglycemia Lactated Ringer's (Ringers, Lactated) 1,000 mls @ 999 mls/hr IV .BOLUS ONE Stop: 09/18/21 02:37 Last Admin: 09/18/21 01:50 Dose: 999 mls/hr Documented by: Remdesivir 200 mg/ Sodium (Chloride) 250 mls @ 250 mls/hr IV ONETIME ONE Stop: 09/18/21 02:13 Last Admin: 09/18/21 03:00 Dose: 250 mls/hr Documented by: Lactated Ringer's (Ringers, Lactated) 1,000 mls @ 125 mls/hr IV ASDIRECTED [facility] Last Admin: 09/18/21 03:00 Dose: 125 mls/hr Documented by: Remdesivir 100 mg/ Sodium (Chloride) 100 mls @ 100 mls/hr IV Q24H GAGANDEEP Stop: 09/22/21 09:59 Last Admin: 09/22/21 09:12 Dose: 100 mls/hr Documented by: Insulin Glargine (Insulin Glargine,Human Rec. Analog 100 Units/Ml 3 Ml Pen) 10 units SUBCUT BEDTIME GAGANDEEP Last Admin: 09/18/21 21:23 Dose: 10 units Documented by: Iopamidol (Iopamidol 755 Mg/Ml 500 Ml Multipack Bottle) 100 ml IVPUSH ONETIME ONE Stop: 09/18/21 17:03 Last Admin: 09/18/21 17:03 Dose: 100 ml Documented by: Ketorolac Tromethamine (Ketorolac 15 Mg/Ml Sdv) 15 mg IM ONETIME ONE Stop: 09/18/21 01:38 Last Admin: 09/18/21 01:53 Dose: Not Given Documented by: Ketorolac Tromethamine (Ketorolac 15 Mg/Ml Sdv) 15 mg IVPUSH NOW STA Stop: 09/18/21 01:46 Last Admin: 09/18/21 01:50 Dose: 15 mg Documented by: Potassium Chloride (Potassium Chloride 10% 20 Meq/15 Ml Soln 30 Ml Ud Cup) 40 meq PO ONETIME ONE Stop: 09/18/21 02:14 Last Admin: 09/18/21 02:22 Dose: 40 meq Documented by: Potassium Chloride (Potassium Chloride 20 Meq Tab.Er) 40 meq PO ONETIME ONE Stop: 09/19/21 15:54 Last Admin: 09/19/21 16:19 Dose: 40 meq Documented by: - Exam General: Alert, Oriented Neck: Supple Lungs: Clear to Auscultation, Normal Respiratory Effort Cardiovascular: Regular Rate, Regular Rhythm GI/Abdominal Exam: Soft, Non-Tender, No Distention Extremities: Non-Tender, No Pedal Edema Skin: Warm, Dry, Intact Neurological: No New Focal Deficit - Patient Data Lab Results Last 24 hrs: Laboratory Results - last 24 hr 09/21/21 09/21/21 09/21/21 Range/Units 13:28 13:28 13:28 WBC 6.18 (4.0-11.0) K/uL RBC 4.47 (4.30-5.90) M/uL Hgb 13.3 (12.0-16.0) g/dL Hct 39.2 (36.0-46.0) % MCV 87.7 (80.0-98.0) fL MCH 29.8 (27.0-32.0) pg MCHC 33.9 (31.0-37.0) g/dL RDW Std Deviation 40.4 (28.0-62.0) fl RDW Coeff of Deniz 13 (11.0-15.0) % Plt Count 278 (150-400) K/uL MPV 9.50 (7.40-12.00) fL Add Manual Diff YES Neutrophils % (Manual) 66 (48.0-80.0) % Band Neutrophils % 10 % Lymphocytes % (Manual) 20 (16.0-40.0) % Monocytes % (Manual) 3 (0.0-15.0) % Eosinophils % (Manual) (0.0-7.0) % Basophils % (Manual) 1 (0.0-1.5) % Nucleated RBC % 0.0 /100WBC Absolute Seg Neuts 4.1 (1.4-5.7) Band Neutrophils # 0.6 Lymphocytes # (Manual) 1.2 (0.6-2.4) Monocytes # (Manual) 0.2 (0.0-0.8) Eosinophils # (Manual) (0.0-0.7) Basophils # (Manual) 0.1 (0.0-0.1) Nucleated RBCs # 0 K/uL Sodium 137 (136-145) mmol/L Potassium 4.2 (3.5-5.1) mmol/L Chloride 97 L (98-107) mmol/L Carbon Dioxide 34.2 H (21.0-32.0) mmol/L BUN 10 (7.0-18.0) mg/dL Creatinine 0.7 (0.6-1.0) mg/dL Est Cr Clr Drug Dosing 84.15 mL/min Estimated GFR (MDRD) > 60.0 ml/min Glucose 322 H (74-106) mg/dL POC Glucose (70-99) mg/dL Calcium 9.1 (8.5-10.1) mg/dL Total Bilirubin 0.3 (0.2-1.0) mg/dL AST 21 (15-37) IU/L ALT 19 (14-63) IU/L Alkaline Phosphatase 82 (46-116) U/L C-Reactive Protein 7.50 H (0.00-0.90) mg/dL Total Protein 7.3 (6.4-8.2) g/dL Albumin 3.0 L (3.4-5.0) g/dL Globulin 4.3 H (2.6-4.0) g/dL Albumin/Globulin Ratio 0.7 L (0.9-1.6) 09/21/21 09/21/21 09/22/21 Range/Units 17:21 21:44 06:12 WBC 6.86 (4.0-11.0) K/uL RBC 4.48 (4.30-5.90) M/uL Hgb 12.9 (12.0-16.0) g/dL Hct 39.4 (36.0-46.0) % MCV 87.9 (80.0-98.0) fL MCH 28.8 (27.0-32.0) pg MCHC 32.7 (31.0-37.0) g/dL RDW Std Deviation 40.5 (28.0-62.0) fl RDW Coeff of Deniz 13 (11.0-15.0) % Plt Count 329 (150-400) K/uL MPV 9.50 (7.40-12.00) fL Add Manual Diff YES Neutrophils % (Manual) 55 (48.0-80.0) % Band Neutrophils % 5 % Lymphocytes % (Manual) 32 (16.0-40.0) % Monocytes % (Manual) 6 (0.0-15.0) % Eosinophils % (Manual) 2 (0.0-7.0) % Basophils % (Manual) (0.0-1.5) % Nucleated RBC % 0.0 /100WBC Absolute Seg Neuts 3.8 (1.4-5.7) Band Neutrophils # 0.3 Lymphocytes # (Manual) 2.2 (0.6-2.4) Monocytes # (Manual) 0.4 (0.0-0.8) Eosinophils # (Manual) 0.1 (0.0-0.7) Basophils # (Manual) (0.0-0.1) Nucleated RBCs # 0 K/uL Sodium (136-145) mmol/L Potassium (3.5-5.1) mmol/L Chloride (98-107) mmol/L Carbon Dioxide (21.0-32.0) mmol/L BUN (7.0-18.0) mg/dL Creatinine (0.6-1.0) mg/dL Est Cr Clr Drug Dosing mL/min Estimated GFR (MDRD) ml/min Glucose (74-106) mg/dL POC Glucose 347 H 331 H (70-99) mg/dL Calcium (8.5-10.1) mg/dL Total Bilirubin (0.2-1.0) mg/dL AST (15-37) IU/L ALT (14-63) IU/L Alkaline Phosphatase (46-116) U/L C-Reactive Protein (0.00-0.90) mg/dL Total Protein (6.4-8.2) g/dL Albumin (3.4-5.0) g/dL Globulin (2.6-4.0) g/dL Albumin/Globulin Ratio (0.9-1.6) 09/22/21 09/22/21 09/22/21 Range/Units 06:12 06:31 12:13 WBC (4.0-11.0) K/uL RBC (4.30-5.90) M/uL Hgb (12.0-16.0) g/dL Hct (36.0-46.0) % MCV (80.0-98.0) fL MCH (27.0-32.0) pg MCHC (31.0-37.0) g/dL RDW Std Deviation (28.0-62.0) fl RDW Coeff of Deniz (11.0-15.0) % Plt Count (150-400) K/uL MPV (7.40-12.00) fL Add Manual Diff Neutrophils % (Manual) (48.0-80.0) % Band Neutrophils % % Lymphocytes % (Manual) (16.0-40.0) % Monocytes % (Manual) (0.0-15.0) % Eosinophils % (Manual) (0.0-7.0) % Basophils % (Manual) (0.0-1.5) % Nucleated RBC % /100WBC Absolute Seg Neuts (1.4-5.7) Band Neutrophils # Lymphocytes # (Manual) (0.6-2.4) Monocytes # (Manual) (0.0-0.8) Eosinophils # (Manual) (0.0-0.7) Basophils # (Manual) (0.0-0.1) Nucleated RBCs # K/uL Sodium 138 (136-145) mmol/L Potassium 3.3 L (3.5-5.1) mmol/L Chloride 99 (98-107) mmol/L Carbon Dioxide 31.5 (21.0-32.0) mmol/L BUN 11 (7.0-18.0) mg/dL Creatinine 0.7 (0.6-1.0) mg/dL Est Cr Clr Drug Dosing 84.15 mL/min Estimated GFR (MDRD) > 60.0 ml/min Glucose 280 H (74-106) mg/dL POC Glucose 251 H 273 H (70-99) mg/dL Calcium 9.1 (8.5-10.1) mg/dL Total Bilirubin 0.3 (0.2-1.0) mg/dL AST 22 (15-37) IU/L ALT 21 (14-63) IU/L Alkaline Phosphatase 71 (46-116) U/L C-Reactive Protein (0.00-0.90) mg/dL Total Protein 7.2 (6.4-8.2) g/dL Albumin 2.7 L (3.4-5.0) g/dL Globulin 4.5 H (2.6-4.0) g/dL Albumin/Globulin Ratio 0.6 L (0.9-1.6) Result Diagrams: 09/22/21 06:12 09/22/21 06:12 Sepsis Event Note - Evaluation Sepsis Screening Result: No Definite Risk - Focused Exam Vital Signs: Vital Signs Temp Pulse Resp BP Pulse Ox 09/22/21 12:00 36.3 C 75 20 133/88 95 09/22/21 08:23 35.7 C L 69 20 133/75 91 L 09/22/21 04:00 36.4 C 56 L 18 115/82 92 L - Problem List & Annotations (1) Acute hypoxemic respiratory failure due to COVID-19 SNOMED Code(s): 424843883 Code(s): U07.1 - COVID-19; J96.01 - ACUTE RESPIRATORY FAILURE WITH HYPOXIA Status: Acute Current Visit: Yes (2) COVID-19 virus infection SNOMED Code(s): 334776115 Code(s): U07.1 - COVID-19 Status: Acute Current Visit: Yes - Problem List Review Problem List Initiated/Reviewed/Updated: Yes - My Orders Last 24 Hours: My Active Orders 09/21/21 15:00 Baricitinib [Olumiant] 4 mg PO Q24H 09/21/21 21:00 Melatonin 6 mg PO BEDTIME PRN 09/23/21 05:11 CBC WITH AUTO DIFF [HEME] AM COMPREHENSIVE METABOLIC PN,CMP [CHEM] AM 09/24/21 05:11 CBC WITH AUTO DIFF [HEME] AM COMPREHENSIVE METABOLIC PN,CMP [CHEM] AM 09/25/21 05:11 CBC WITH AUTO DIFF [HEME] AM COMPREHENSIVE METABOLIC PN,CMP [CHEM] AM 09/26/21 05:11 CBC WITH AUTO DIFF [HEME] AM COMPREHENSIVE METABOLIC PN,CMP [CHEM] AM - Plan Plan:: Acute hypoxemic respiratory failure due to COVID 19 Hypoxia: on HHFNC 50 L at 85% COVID: on dexamethasone and baricitinib, finished remdesivir T2DM: ivis Cisneros
[2021-09-22] MEDS ORDERED: Potassium Chloride 20 MEQ Tab.ER PO ONE (15:07)
[2021-09-22] MEDS: Enoxaparin 40 MG/0.4 ML Syringe SUBCUT SCH (15:50)
[2021-09-22] MEDS: Melatonin 3 MG Tab PO PRN (21:33)
[2021-09-23] MEDS: Albuterol/Ipratropium 3.0-0.5 MG/3 ML Neb Soln NEB SCH ×5 (02:04→17:35)
[2021-09-23 07:42] LABS: BLOOD UREA NITROGEN,BUN 10 mg/dL (7.0-18.0); CARBON DIOXIDE,CO2 32.2 mmol/L (21.0-32.0); CHLORIDE,CL 99 mmol/L (98-107); GLUCOSE RANDOM 172 mg/dL (74-106); POTASSIUM,K 3.3 mmol/L (3.5-5.1); SODIUM,NA 141 mmol/L (136-145)
[2021-09-23] MEDS: Fluticasone Propionate Nasal Spray 16 GM Bottle NASBOTH SCH ×2 (08:52→20:42)
[2021-09-23] MEDS: Dexamethasone 4 MG Tab PO SCH (08:52)
[2021-09-23] MEDS: Citalopram 20 MG Tab PO SCH (08:52)
[2021-09-23] MEDS: Insulin Aspart 100 Units/ML 3 ML Pen SUBCUT SCH ×3 (08:53→17:18)
[2021-09-23] MEDS: Insulin Glargine,Human Rec. Analog 100 Units/ML 3 ML Pen SUBCUT SCH ×2 (08:54→20:43)
[2021-09-23] MEDS ORDERED: Potassium Chloride 20 MEQ Tab.ER PO ONE (11:38)
--- NOTE | 2021-09-23 11:39 | PCM.PN ---
- General Info Date of Service: 09/23/21 - Review of Systems Systems Review Comment:: feeling better, shortness of breath improving - Patient Data Vitals - Most Recent: Last Vital Signs Temp 36.1 C 09/23/21 07:00 Pulse 76 09/23/21 07:00 Resp 16 09/23/21 07:00 BP 115/75 09/23/21 07:00 Pulse Ox 92 L 09/23/21 07:00 Weight - Most Recent: 110.495 kg I&O - Last 24 Hours: Intake & Output 09/22/21 09/23/21 09/23/21 22:59 06:59 14:59 Intake Total 1700 1200 Output Total 1000 950 Balance 700 250 Lab Results Last 24 Hours: Laboratory Results - last 24 hr 09/22/21 09/22/21 09/22/21 Range/Units 12:13 17:26 21:24 WBC (4.0-11.0) K/uL RBC (4.30-5.90) M/uL Hgb (12.0-16.0) g/dL Hct (36.0-46.0) % MCV (80.0-98.0) fL MCH (27.0-32.0) pg MCHC (31.0-37.0) g/dL RDW Std Deviation (28.0-62.0) fl RDW Coeff of Deniz (11.0-15.0) % Plt Count (150-400) K/uL MPV (7.40-12.00) fL Add Manual Diff Neutrophils % (Manual) (48.0-80.0) % Band Neutrophils % % Lymphocytes % (Manual) (16.0-40.0) % Monocytes % (Manual) (0.0-15.0) % Eosinophils % (Manual) (0.0-7.0) % Nucleated RBC % /100WBC Absolute Seg Neuts (1.4-5.7) Band Neutrophils # Lymphocytes # (Manual) (0.6-2.4) Monocytes # (Manual) (0.0-0.8) Eosinophils # (Manual) (0.0-0.7) Nucleated RBCs # K/uL Sodium (136-145) mmol/L Potassium (3.5-5.1) mmol/L Chloride (98-107) mmol/L Carbon Dioxide (21.0-32.0) mmol/L BUN (7.0-18.0) mg/dL Creatinine (0.6-1.0) mg/dL Est Cr Clr Drug Dosing mL/min Estimated GFR (MDRD) ml/min Glucose (74-106) mg/dL POC Glucose 273 H 376 H 347 H (70-99) mg/dL Calcium (8.5-10.1) mg/dL Total Bilirubin (0.2-1.0) mg/dL AST (15-37) IU/L ALT (14-63) IU/L Alkaline Phosphatase (46-116) U/L Total Protein (6.4-8.2) g/dL Albumin (3.4-5.0) g/dL Globulin (2.6-4.0) g/dL Albumin/Globulin Ratio (0.9-1.6) 09/23/21 09/23/21 09/23/21 Range/Units 06:07 06:08 06:08 WBC 8.47 (4.0-11.0) K/uL RBC 4.30 (4.30-5.90) M/uL Hgb 12.4 (12.0-16.0) g/dL Hct 38.0 (36.0-46.0) % MCV 88.4 (80.0-98.0) fL MCH 28.8 (27.0-32.0) pg MCHC 32.6 (31.0-37.0) g/dL RDW Std Deviation 41.6 (28.0-62.0) fl RDW Coeff of Deniz 13 (11.0-15.0) % Plt Count 343 (150-400) K/uL MPV 9.50 (7.40-12.00) fL Add Manual Diff YES Neutrophils % (Manual) 55 (48.0-80.0) % Band Neutrophils % 4 % Lymphocytes % (Manual) 32 (16.0-40.0) % Monocytes % (Manual) 8 (0.0-15.0) % Eosinophils % (Manual) 1 (0.0-7.0) % Nucleated RBC % 0.0 /100WBC Absolute Seg Neuts 4.7 (1.4-5.7) Band Neutrophils # 0.3 Lymphocytes # (Manual) 2.7 H (0.6-2.4) Monocytes # (Manual) 0.7 (0.0-0.8) Eosinophils # (Manual) 0.1 (0.0-0.7) Nucleated RBCs # 0 K/uL Sodium 141 (136-145) mmol/L Potassium 3.3 L (3.5-5.1) mmol/L Chloride 99 (98-107) mmol/L Carbon Dioxide 32.2 H (21.0-32.0) mmol/L BUN 10 (7.0-18.0) mg/dL Creatinine 0.7 (0.6-1.0) mg/dL Est Cr Clr Drug Dosing 84.15 mL/min Estimated GFR (MDRD) > 60.0 ml/min Glucose 172 H (74-106) mg/dL POC Glucose 154 H (70-99) mg/dL Calcium 9.1 (8.5-10.1) mg/dL Total Bilirubin 0.2 (0.2-1.0) mg/dL AST 26 (15-37) IU/L ALT 27 (14-63) IU/L Alkaline Phosphatase 61 (46-116) U/L Total Protein 6.7 (6.4-8.2) g/dL Albumin 2.6 L (3.4-5.0) g/dL Globulin 4.1 H (2.6-4.0) g/dL Albumin/Globulin Ratio 0.6 L (0.9-1.6) Med Orders - Current: Current Medications Acetaminophen (Acetaminophen 325 Mg Tab) 650 mg PO Q4H PRN PRN Reason: Pain (Mild 1-3)/fever Last Admin: 09/20/21 21:37 Dose: 650 mg Documented by: Albuterol/Ipratropium (Albuterol/Ipratropium 3.0-0.5 Mg/3 Ml Neb Soln) 3 ml NEB Q4HRRT [facility] Last Admin: 09/23/21 10:19 Dose: 3 ml Documented by: Baricitinib (Baricitinib 2 Mg Tab) 4 mg PO Q24H [facility] Last Admin: 09/22/21 15:49 Dose: 4 mg Documented by: Citalopram Hydrobromide (Citalopram 20 Mg Tab) 20 mg PO DAILY [facility] Last Admin: 09/23/21 08:52 Dose: 20 mg Documented by: Dexamethasone (Dexamethasone 4 Mg Tab) 6 mg PO DAILY [facility] Stop: 09/29/21 16:31 Last Admin: 09/23/21 08:52 Dose: 6 mg Documented by: Dextrose/Water (50% Dextrose In Water 50 Ml Syringe) 50 ml IVPUSH ASDIRECTED PRN PRN Reason: Hypoglycemia Enoxaparin Sodium (Enoxaparin 40 Mg/0.4 Ml Syringe) 40 mg SUBCUT Q24H [facility] Last Admin: 09/22/21 15:50 Dose: 40 mg Documented by: Fluticasone Propionate (Fluticasone Propionate Nasal [place] 16 Gm Bottle) 0 gm NASBOTH BID [facility] Last Admin: 09/23/21 08:52 Dose: 1 spray Documented by: Glucagon (Glucagon,Human Recombinant 1 Mg Vial) 1 mg IM ASDIRECTED PRN PRN Reason: Hypoglycemia Insulin Aspart (Insulin Aspart 100 Units/Ml 3 Ml Pen) 0 unit SUBCUT TIDAC [facility]; Protocol Last Admin: 09/23/21 08:53 Dose: 1 units Documented by: Insulin Glargine (Insulin Glargine,Human Rec. Analog 100 Units/Ml 3 Ml Pen) 10 units SUBCUT BID [facility] Last Admin: 09/23/21 08:54 Dose: 10 unit Documented by: Melatonin (Melatonin 3 Mg Tab) 6 mg PO BEDTIME PRN PRN Reason: Insomnia Last Admin: 09/22/21 21:33 Dose: 6 mg Documented by: Ondansetron HCl (Ondansetron 4 Mg/2 Ml Sdv) 4 mg IVPUSH Q4H PRN PRN Reason: Nausea/Vomiting Last Admin: 09/20/21 08:39 Dose: 4 mg Documented by: Ondansetron HCl (Ondansetron 4 Mg Tab.Dis) 4 mg PO Q4H PRN PRN Reason: nausea, able to take PO Discontinued Medications Acetaminophen (Acetaminophen 325 Mg Tab) 650 mg PO Q4H PRN PRN Reason: Pain Last Admin: 09/19/21 08:13 Dose: 650 mg Documented by: Aspirin (Aspirin 81 Mg Tab.Chew) 324 mg PO ONETIME ONE Stop: 09/18/21 01:38 Last Admin: 09/18/21 01:50 Dose: 324 mg Documented by: Dexamethasone (Dexamethasone 4 Mg Tab) 6 mg PO ONETIME ONE Stop: 09/18/21 02:12 Last Admin: 09/18/21 02:22 Dose: 6 mg Documented by: Dextrose/Water (50% Dextrose In Water 50 Ml Syringe) 50 ml IVPUSH ASDIRECTED PRN PRN Reason: Hypoglycemia Glucagon (Glucagon,Human Recombinant 1 Mg Vial) 1 mg IM ASDIRECTED PRN PRN Reason: Hypoglycemia Lactated Ringer's (Ringers, Lactated) 1,000 mls @ 999 mls/hr IV .BOLUS ONE Stop: 09/18/21 02:37 Last Admin: 09/18/21 01:50 Dose: 999 mls/hr Documented by: Remdesivir 200 mg/ Sodium (Chloride) 250 mls @ 250 mls/hr IV ONETIME ONE Stop: 09/18/21 02:13 Last Admin: 09/18/21 03:00 Dose: 250 mls/hr Documented by: Lactated Ringer's (Ringers, Lactated) 1,000 mls @ 125 mls/hr IV ASDIRECTED GAGANDEEP Last Admin: 09/18/21 03:00 Dose: 125 mls/hr Documented by: Remdesivir 100 mg/ Sodium (Chloride) 100 mls @ 100 mls/hr IV Q24H [facility] Stop: 09/22/21 09:59 Last Admin: 09/22/21 09:12 Dose: 100 mls/hr Documented by: Insulin Glargine (Insulin Glargine,Human Rec. Analog 100 Units/Ml 3 Ml Pen) 10 units SUBCUT BEDTIME [facility] Last Admin: 09/18/21 21:23 Dose: 10 units Documented by: Iopamidol (Iopamidol 755 Mg/Ml 500 Ml Multipack Bottle) 100 ml IVPUSH ONETIME ONE Stop: 09/18/21 17:03 Last Admin: 09/18/21 17:03 Dose: 100 ml Documented by: Ketorolac Tromethamine (Ketorolac 15 Mg/Ml Sdv) 15 mg IM ONETIME ONE Stop: 09/18/21 01:38 Last Admin: 09/18/21 01:53 Dose: Not Given Documented by: Ketorolac Tromethamine (Ketorolac 15 Mg/Ml Sdv) 15 mg IVPUSH NOW STA Stop: 09/18/21 01:46 Last Admin: 09/18/21 01:50 Dose: 15 mg Documented by: Potassium Chloride (Potassium Chloride 10% 20 Meq/15 Ml Soln 30 Ml Ud Cup) 40 meq PO ONETIME ONE Stop: 09/18/21 02:14 Last Admin: 09/18/21 02:22 Dose: 40 meq Documented by: Potassium Chloride (Potassium Chloride 20 Meq Tab.Er) 40 meq PO ONETIME ONE Stop: 09/19/21 15:54 Last Admin: 09/19/21 16:19 Dose: 40 meq Documented by: Potassium Chloride (Potassium Chloride 20 Meq Tab.Er) 40 meq PO ONETIME ONE Stop: 09/22/21 15:08 Last Admin: 09/22/21 16:31 Dose: 40 meq Documented by: - Exam General: Alert, Oriented Neck: Supple Lungs: Clear to Auscultation, Normal Respiratory Effort Cardiovascular: Regular Rate, Regular Rhythm GI/Abdominal Exam: Soft, Non-Tender, No Distention Extremities: Non-Tender, No Pedal Edema Skin: Warm, Dry, Intact Neurological: No New Focal Deficit - Patient Data Lab Results Last 24 hrs: Laboratory Results - last 24 hr 09/22/21 09/22/21 09/22/21 Range/Units 12:13 17:26 21:24 WBC (4.0-11.0) K/uL RBC (4.30-5.90) M/uL Hgb (12.0-16.0) g/dL Hct (36.0-46.0) % MCV (80.0-98.0) fL MCH (27.0-32.0) pg MCHC (31.0-37.0) g/dL RDW Std Deviation (28.0-62.0) fl RDW Coeff of Deniz (11.0-15.0) % Plt Count (150-400) K/uL MPV (7.40-12.00) fL Add Manual Diff Neutrophils % (Manual) (48.0-80.0) % Band Neutrophils % % Lymphocytes % (Manual) (16.0-40.0) % Monocytes % (Manual) (0.0-15.0) % Eosinophils % (Manual) (0.0-7.0) % Nucleated RBC % /100WBC Absolute Seg Neuts (1.4-5.7) Band Neutrophils # Lymphocytes # (Manual) (0.6-2.4) Monocytes # (Manual) (0.0-0.8) Eosinophils # (Manual) (0.0-0.7) Nucleated RBCs # K/uL Sodium (136-145) mmol/L Potassium (3.5-5.1) mmol/L Chloride (98-107) mmol/L Carbon Dioxide (21.0-32.0) mmol/L BUN (7.0-18.0) mg/dL Creatinine (0.6-1.0) mg/dL Est Cr Clr Drug Dosing mL/min Estimated GFR (MDRD) ml/min Glucose (74-106) mg/dL POC Glucose 273 H 376 H 347 H (70-99) mg/dL Calcium (8.5-10.1) mg/dL Total Bilirubin (0.2-1.0) mg/dL AST (15-37) IU/L ALT (14-63) IU/L Alkaline Phosphatase (46-116) U/L Total Protein (6.4-8.2) g/dL Albumin (3.4-5.0) g/dL Globulin (2.6-4.0) g/dL Albumin/Globulin Ratio (0.9-1.6) 09/23/21 09/23/21 09/23/21 Range/Units 06:07 06:08 06:08 WBC 8.47 (4.0-11.0) K/uL RBC 4.30 (4.30-5.90) M/uL Hgb 12.4 (12.0-16.0) g/dL Hct 38.0 (36.0-46.0) % MCV 88.4 (80.0-98.0) fL MCH 28.8 (27.0-32.0) pg MCHC 32.6 (31.0-37.0) g/dL RDW Std Deviation 41.6 (28.0-62.0) fl RDW Coeff of Deniz 13 (11.0-15.0) % Plt Count 343 (150-400) K/uL MPV 9.50 (7.40-12.00) fL Add Manual Diff YES Neutrophils % (Manual) 55 (48.0-80.0) % Band Neutrophils % 4 % Lymphocytes % (Manual) 32 (16.0-40.0) % Monocytes % (Manual) 8 (0.0-15.0) % Eosinophils % (Manual) 1 (0.0-7.0) % Nucleated RBC % 0.0 /100WBC Absolute Seg Neuts 4.7 (1.4-5.7) Band Neutrophils # 0.3 Lymphocytes # (Manual) 2.7 H (0.6-2.4) Monocytes # (Manual) 0.7 (0.0-0.8) Eosinophils # (Manual) 0.1 (0.0-0.7) Nucleated RBCs # 0 K/uL Sodium 141 (136-145) mmol/L Potassium 3.3 L (3.5-5.1) mmol/L Chloride 99 (98-107) mmol/L Carbon Dioxide 32.2 H (21.0-32.0) mmol/L BUN 10 (7.0-18.0) mg/dL Creatinine 0.7 (0.6-1.0) mg/dL Est Cr Clr Drug Dosing 84.15 mL/min Estimated GFR (MDRD) > 60.0 ml/min Glucose 172 H (74-106) mg/dL POC Glucose 154 H (70-99) mg/dL Calcium 9.1 (8.5-10.1) mg/dL Total Bilirubin 0.2 (0.2-1.0) mg/dL AST 26 (15-37) IU/L ALT 27 (14-63) IU/L Alkaline Phosphatase 61 (46-116) U/L Total Protein 6.7 (6.4-8.2) g/dL Albumin 2.6 L (3.4-5.0) g/dL Globulin 4.1 H (2.6-4.0) g/dL Albumin/Globulin Ratio 0.6 L (0.9-1.6) Result Diagrams: 09/23/21 06:08 09/23/21 06:08 Sepsis Event Note - Evaluation Sepsis Screening Result: No Definite Risk - Focused Exam Vital Signs: Vital Signs Temp Pulse Resp BP Pulse Ox 09/23/21 07:00 36.1 C 76 16 115/75 92 L 09/23/21 03:26 36.2 C 56 L 20 104/65 100 09/23/21 00:23 36.2 C 74 22 H 122/79 98 - Problem List & Annotations (1) Acute hypoxemic respiratory failure due to COVID-19 SNOMED Code(s): 434578091 Code(s): U07.1 - COVID-19; J96.01 - ACUTE RESPIRATORY FAILURE WITH HYPOXIA Status: Acute Current Visit: Yes (2) COVID-19 virus infection SNOMED Code(s): 496647348 Code(s): U07.1 - COVID-19 Status: Acute Current Visit: Yes - Problem List Review Problem List Initiated/Reviewed/Updated: Yes - My Orders Last 24 Hours: My Active Orders 09/23/21 11:38 Potassium Chloride [Klor-Con M20] 40 meq PO ONETIME ONE 09/24/21 05:11 CBC WITH AUTO DIFF [HEME] AM COMPREHENSIVE METABOLIC PN,CMP [CHEM] AM 09/25/21 05:11 CBC WITH AUTO DIFF [HEME] AM COMPREHENSIVE METABOLIC PN,CMP [CHEM] AM 09/26/21 05:11 CBC WITH AUTO DIFF [HEME] AM COMPREHENSIVE METABOLIC PN,CMP [CHEM] AM - Plan Plan:: Acute hypoxemic respiratory failure due to COVID 19 Hypoxia: weaned off HHF onto NC 5 L NC COVID: on dexamethasone and baricitinib, finished remdesivir T2DM: ivis Cisneros
[2021-09-23] MEDS ORDERED: Potassium Chloride 10% 20 MEQ/15 ML Soln 30 ML UD Cup PO ONE (12:15)
[2021-09-23] MEDS: Enoxaparin 40 MG/0.4 ML Syringe SUBCUT SCH (14:50)
[2021-09-23] MEDS: Melatonin 3 MG Tab PO PRN (20:46)
[2021-09-24 06:51] LABS: BLOOD UREA NITROGEN,BUN 9 mg/dL (7.0-18.0); CARBON DIOXIDE,CO2 32.1 mmol/L (21.0-32.0); CHLORIDE,CL 103 mmol/L (98-107); GLUCOSE RANDOM 158 mg/dL (74-106); POTASSIUM,K 3.7 mmol/L (3.5-5.1); SODIUM,NA 142 mmol/L (136-145)
[2021-09-24] MEDS: Albuterol/Ipratropium 3.0-0.5 MG/3 ML Neb Soln NEB SCH ×7 (06:59→21:27)
[2021-09-24] MEDS: Fluticasone Propionate Nasal Spray 16 GM Bottle NASBOTH SCH ×2 (08:16→21:32)
[2021-09-24] MEDS: Citalopram 20 MG Tab PO SCH (08:17)
[2021-09-24] MEDS: Dexamethasone 4 MG Tab PO SCH (08:17)
[2021-09-24] MEDS: Insulin Aspart 100 Units/ML 3 ML Pen SUBCUT SCH ×3 (08:18→17:35)
[2021-09-24] MEDS: Insulin Glargine,Human Rec. Analog 100 Units/ML 3 ML Pen SUBCUT SCH ×2 (08:19→21:29)
[2021-09-24] MEDS: Enoxaparin 40 MG/0.4 ML Syringe SUBCUT SCH (14:46)
--- NOTE | 2021-09-24 15:31 | PCM.PN ---
- General Info Date of Service: 09/24/21 - Review of Systems Systems Review Comment:: feeling better, chest congestion improving - Patient Data Vitals - Most Recent: Last Vital Signs Temp 36.4 C 09/24/21 11:00 Pulse 70 09/24/21 11:00 Resp 18 09/24/21 11:00 BP 111/70 09/24/21 11:00 Pulse Ox 92 L 09/24/21 11:00 Weight - Most Recent: 110.495 kg I&O - Last 24 Hours: Intake & Output 09/24/21 09/24/21 09/24/21 06:59 14:59 22:59 Output Total 400 Balance -400 Lab Results Last 24 Hours: Laboratory Results - last 24 hr 09/23/21 09/23/21 09/24/21 Range/Units 17:14 20:38 05:47 WBC 9.06 (4.0-11.0) K/uL RBC 4.52 (4.30-5.90) M/uL Hgb 13.2 (12.0-16.0) g/dL Hct 40.0 (36.0-46.0) % MCV 88.5 (80.0-98.0) fL MCH 29.2 (27.0-32.0) pg MCHC 33.0 (31.0-37.0) g/dL RDW Std Deviation 41.1 (28.0-62.0) fl RDW Coeff of Deniz 13 (11.0-15.0) % Plt Count 349 (150-400) K/uL MPV 9.50 (7.40-12.00) fL Add Manual Diff YES Neutrophils % (Manual) 51 (48.0-80.0) % Lymphocytes % (Manual) 42 H (16.0-40.0) % Monocytes % (Manual) 6 (0.0-15.0) % Eosinophils % (Manual) 1 (0.0-7.0) % Nucleated RBC % 0.0 /100WBC Absolute Seg Neuts 4.6 (1.4-5.7) Lymphocytes # (Manual) 3.8 H (0.6-2.4) Monocytes # (Manual) 0.5 (0.0-0.8) Eosinophils # (Manual) 0.1 (0.0-0.7) Nucleated RBCs # 0 K/uL Sodium (136-145) mmol/L Potassium (3.5-5.1) mmol/L Chloride (98-107) mmol/L Carbon Dioxide (21.0-32.0) mmol/L BUN (7.0-18.0) mg/dL Creatinine (0.6-1.0) mg/dL Est Cr Clr Drug Dosing mL/min Estimated GFR (MDRD) ml/min Glucose (74-106) mg/dL POC Glucose 333 H 369 H (70-99) mg/dL Calcium (8.5-10.1) mg/dL Total Bilirubin (0.2-1.0) mg/dL AST (15-37) IU/L ALT (14-63) IU/L Alkaline Phosphatase (46-116) U/L Total Protein (6.4-8.2) g/dL Albumin (3.4-5.0) g/dL Globulin (2.6-4.0) g/dL Albumin/Globulin Ratio (0.9-1.6) 09/24/21 09/24/21 09/24/21 Range/Units 05:47 06:31 11:42 WBC (4.0-11.0) K/uL RBC (4.30-5.90) M/uL Hgb (12.0-16.0) g/dL Hct (36.0-46.0) % MCV (80.0-98.0) fL MCH (27.0-32.0) pg MCHC (31.0-37.0) g/dL RDW Std Deviation (28.0-62.0) fl RDW Coeff of Deniz (11.0-15.0) % Plt Count (150-400) K/uL MPV (7.40-12.00) fL Add Manual Diff Neutrophils % (Manual) (48.0-80.0) % Lymphocytes % (Manual) (16.0-40.0) % Monocytes % (Manual) (0.0-15.0) % Eosinophils % (Manual) (0.0-7.0) % Nucleated RBC % /100WBC Absolute Seg Neuts (1.4-5.7) Lymphocytes # (Manual) (0.6-2.4) Monocytes # (Manual) (0.0-0.8) Eosinophils # (Manual) (0.0-0.7) Nucleated RBCs # K/uL Sodium 142 (136-145) mmol/L Potassium 3.7 (3.5-5.1) mmol/L Chloride 103 (98-107) mmol/L Carbon Dioxide 32.1 H (21.0-32.0) mmol/L BUN 9 (7.0-18.0) mg/dL Creatinine 0.7 (0.6-1.0) mg/dL Est Cr Clr Drug Dosing 84.15 mL/min Estimated GFR (MDRD) > 60.0 ml/min Glucose 158 H (74-106) mg/dL POC Glucose 152 H 292 H (70-99) mg/dL Calcium 9.2 (8.5-10.1) mg/dL Total Bilirubin 0.3 (0.2-1.0) mg/dL AST 32 (15-37) IU/L ALT 27 (14-63) IU/L Alkaline Phosphatase 67 (46-116) U/L Total Protein 6.9 (6.4-8.2) g/dL Albumin 2.7 L (3.4-5.0) g/dL Globulin 4.2 H (2.6-4.0) g/dL Albumin/Globulin Ratio 0.6 L (0.9-1.6) Med Orders - Current: Current Medications Acetaminophen (Acetaminophen 325 Mg Tab) 650 mg PO Q4H PRN PRN Reason: Pain (Mild 1-3)/fever Last Admin: 09/20/21 21:37 Dose: 650 mg Documented by: Albuterol/Ipratropium (Albuterol/Ipratropium 3.0-0.5 Mg/3 Ml Neb Soln) 3 ml NEB Q4HRRT [facility] Last Admin: 09/24/21 14:57 Dose: 3 ml Documented by: Baricitinib (Baricitinib 2 Mg Tab) 4 mg PO Q24H [facility] Last Admin: 09/24/21 14:46 Dose: 4 mg Documented by: Citalopram Hydrobromide (Citalopram 20 Mg Tab) 20 mg PO DAILY [facility] Last Admin: 09/24/21 08:17 Dose: 20 mg Documented by: Dexamethasone (Dexamethasone 4 Mg Tab) 6 mg PO DAILY [facility] Stop: 09/29/21 16:31 Last Admin: 09/24/21 08:17 Dose: 6 mg Documented by: Dextrose/Water (50% Dextrose In Water 50 Ml Syringe) 50 ml IVPUSH ASDIRECTED PRN PRN Reason: Hypoglycemia Enoxaparin Sodium (Enoxaparin 40 Mg/0.4 Ml Syringe) 40 mg SUBCUT Q24H [facility] Last Admin: 09/24/21 14:46 Dose: 40 mg Documented by: Fluticasone Propionate (Fluticasone Propionate Nasal [place] 16 Gm Bottle) 0 gm NASBOTH BID [facility] Last Admin: 09/24/21 08:16 Dose: 1 spray Documented by: Glucagon (Glucagon,Human Recombinant 1 Mg Vial) 1 mg IM ASDIRECTED PRN PRN Reason: Hypoglycemia Insulin Aspart (Insulin Aspart 100 Units/Ml 3 Ml Pen) 0 unit SUBCUT TIDAC [facility]; Protocol Last Admin: 09/24/21 12:07 Dose: 3 units Documented by: Insulin Glargine (Insulin Glargine,Human Rec. Analog 100 Units/Ml 3 Ml Pen) 10 units SUBCUT BID [facility] Last Admin: 09/24/21 08:19 Dose: 10 unit Documented by: Melatonin (Melatonin 3 Mg Tab) 6 mg PO BEDTIME PRN PRN Reason: Insomnia Last Admin: 09/23/21 20:46 Dose: 6 mg Documented by: Ondansetron HCl (Ondansetron 4 Mg/2 Ml Sdv) 4 mg IVPUSH Q4H PRN PRN Reason: Nausea/Vomiting Last Admin: 09/20/21 08:39 Dose: 4 mg Documented by: Ondansetron HCl (Ondansetron 4 Mg Tab.Dis) 4 mg PO Q4H PRN PRN Reason: nausea, able to take PO Discontinued Medications Acetaminophen (Acetaminophen 325 Mg Tab) 650 mg PO Q4H PRN PRN Reason: Pain Last Admin: 09/19/21 08:13 Dose: 650 mg Documented by: Aspirin (Aspirin 81 Mg Tab.Chew) 324 mg PO ONETIME ONE Stop: 09/18/21 01:38 Last Admin: 09/18/21 01:50 Dose: 324 mg Documented by: Dexamethasone (Dexamethasone 4 Mg Tab) 6 mg PO ONETIME ONE Stop: 09/18/21 02:12 Last Admin: 09/18/21 02:22 Dose: 6 mg Documented by: Dextrose/Water (50% Dextrose In Water 50 Ml Syringe) 50 ml IVPUSH ASDIRECTED PRN PRN Reason: Hypoglycemia Glucagon (Glucagon,Human Recombinant 1 Mg Vial) 1 mg IM ASDIRECTED PRN PRN Reason: Hypoglycemia Lactated Ringer's (Ringers, Lactated) 1,000 mls @ 999 mls/hr IV .BOLUS ONE Stop: 09/18/21 02:37 Last Admin: 09/18/21 01:50 Dose: 999 mls/hr Documented by: Remdesivir 200 mg/ Sodium (Chloride) 250 mls @ 250 mls/hr IV ONETIME ONE Stop: 09/18/21 02:13 Last Admin: 09/18/21 03:00 Dose: 250 mls/hr Documented by: Lactated Ringer's (Ringers, Lactated) 1,000 mls @ 125 mls/hr IV ASDIRECTED GAG[facility]EP Last Admin: 09/18/21 03:00 Dose: 125 mls/hr Documented by: Remdesivir 100 mg/ Sodium (Chloride) 100 mls @ 100 mls/hr IV Q24H [facility] Stop: 09/22/21 09:59 Last Admin: 09/22/21 09:12 Dose: 100 mls/hr Documented by: Insulin Glargine (Insulin Glargine,Human Rec. Analog 100 Units/Ml 3 Ml Pen) 10 units SUBCUT BEDTIME [facility] Last Admin: 09/18/21 21:23 Dose: 10 units Documented by: Iopamidol (Iopamidol 755 Mg/Ml 500 Ml Multipack Bottle) 100 ml IVPUSH ONETIME ONE Stop: 09/18/21 17:03 Last Admin: 09/18/21 17:03 Dose: 100 ml Documented by: Ketorolac Tromethamine (Ketorolac 15 Mg/Ml Sdv) 15 mg IM ONETIME ONE Stop: 09/18/21 01:38 Last Admin: 09/18/21 01:53 Dose: Not Given Documented by: Ketorolac Tromethamine (Ketorolac 15 Mg/Ml Sdv) 15 mg IVPUSH NOW STA Stop: 09/18/21 01:46 Last Admin: 09/18/21 01:50 Dose: 15 mg Documented by: Potassium Chloride (Potassium Chloride 10% 20 Meq/15 Ml Soln 30 Ml Ud Cup) 40 meq PO ONETIME ONE Stop: 09/18/21 02:14 Last Admin: 09/18/21 02:22 Dose: 40 meq Documented by: Potassium Chloride (Potassium Chloride 20 Meq Tab.Er) 40 meq PO ONETIME ONE Stop: 09/19/21 15:54 Last Admin: 09/19/21 16:19 Dose: 40 meq Documented by: Potassium Chloride (Potassium Chloride 20 Meq Tab.Er) 40 meq PO ONETIME ONE Stop: 09/22/21 15:08 Last Admin: 09/22/21 16:31 Dose: 40 meq Documented by: Potassium Chloride (Potassium Chloride 10% 20 Meq/15 Ml Soln 30 Ml Ud Cup) 40 meq PO ONETIME ONE Stop: 09/23/21 12:16 Last Admin: 09/23/21 12:47 Dose: 40 meq Documented by: - Exam General: Alert, Oriented Neck: Supple Lungs: Clear to Auscultation, Normal Respiratory Effort Cardiovascular: Regular Rate, Regular Rhythm GI/Abdominal Exam: Soft, Non-Tender Extremities: Non-Tender, No Pedal Edema Skin: Warm, Dry, Intact Neurological: No New Focal Deficit - Patient Data Lab Results Last 24 hrs: Laboratory Results - last 24 hr 09/23/21 09/23/21 09/24/21 Range/Units 17:14 20:38 05:47 WBC 9.06 (4.0-11.0) K/uL RBC 4.52 (4.30-5.90) M/uL Hgb 13.2 (12.0-16.0) g/dL Hct 40.0 (36.0-46.0) % MCV 88.5 (80.0-98.0) fL MCH 29.2 (27.0-32.0) pg MCHC 33.0 (31.0-37.0) g/dL RDW Std Deviation 41.1 (28.0-62.0) fl RDW Coeff of Deniz 13 (11.0-15.0) % Plt Count 349 (150-400) K/uL MPV 9.50 (7.40-12.00) fL Add Manual Diff YES Neutrophils % (Manual) 51 (48.0-80.0) % Lymphocytes % (Manual) 42 H (16.0-40.0) % Monocytes % (Manual) 6 (0.0-15.0) % Eosinophils % (Manual) 1 (0.0-7.0) % Nucleated RBC % 0.0 /100WBC Absolute Seg Neuts 4.6 (1.4-5.7) Lymphocytes # (Manual) 3.8 H (0.6-2.4) Monocytes # (Manual) 0.5 (0.0-0.8) Eosinophils # (Manual) 0.1 (0.0-0.7) Nucleated RBCs # 0 K/uL Sodium (136-145) mmol/L Potassium (3.5-5.1) mmol/L Chloride (98-107) mmol/L Carbon Dioxide (21.0-32.0) mmol/L BUN (7.0-18.0) mg/dL Creatinine (0.6-1.0) mg/dL Est Cr Clr Drug Dosing mL/min Estimated GFR (MDRD) ml/min Glucose (74-106) mg/dL POC Glucose 333 H 369 H (70-99) mg/dL Calcium (8.5-10.1) mg/dL Total Bilirubin (0.2-1.0) mg/dL AST (15-37) IU/L ALT (14-63) IU/L Alkaline Phosphatase (46-116) U/L Total Protein (6.4-8.2) g/dL Albumin (3.4-5.0) g/dL Globulin (2.6-4.0) g/dL Albumin/Globulin Ratio (0.9-1.6) 09/24/21 09/24/21 09/24/21 Range/Units 05:47 06:31 11:42 WBC (4.0-11.0) K/uL RBC (4.30-5.90) M/uL Hgb (12.0-16.0) g/dL Hct (36.0-46.0) % MCV (80.0-98.0) fL MCH (27.0-32.0) pg MCHC (31.0-37.0) g/dL RDW Std Deviation (28.0-62.0) fl RDW Coeff of Deniz (11.0-15.0) % Plt Count (150-400) K/uL MPV (7.40-12.00) fL Add Manual Diff Neutrophils % (Manual) (48.0-80.0) % Lymphocytes % (Manual) (16.0-40.0) % Monocytes % (Manual) (0.0-15.0) % Eosinophils % (Manual) (0.0-7.0) % Nucleated RBC % /100WBC Absolute Seg Neuts (1.4-5.7) Lymphocytes # (Manual) (0.6-2.4) Monocytes # (Manual) (0.0-0.8) Eosinophils # (Manual) (0.0-0.7) Nucleated RBCs # K/uL Sodium 142 (136-145) mmol/L Potassium 3.7 (3.5-5.1) mmol/L Chloride 103 (98-107) mmol/L Carbon Dioxide 32.1 H (21.0-32.0) mmol/L BUN 9 (7.0-18.0) mg/dL Creatinine 0.7 (0.6-1.0) mg/dL Est Cr Clr Drug Dosing 84.15 mL/min Estimated GFR (MDRD) > 60.0 ml/min Glucose 158 H (74-106) mg/dL POC Glucose 152 H 292 H (70-99) mg/dL Calcium 9.2 (8.5-10.1) mg/dL Total Bilirubin 0.3 (0.2-1.0) mg/dL AST 32 (15-37) IU/L ALT 27 (14-63) IU/L Alkaline Phosphatase 67 (46-116) U/L Total Protein 6.9 (6.4-8.2) g/dL Albumin 2.7 L (3.4-5.0) g/dL Globulin 4.2 H (2.6-4.0) g/dL Albumin/Globulin Ratio 0.6 L (0.9-1.6) Result Diagrams: 09/24/21 05:47 09/24/21 05:47 Sepsis Event Note - Evaluation Sepsis Screening Result: No Definite Risk - Focused Exam Vital Signs: Vital Signs Temp Pulse Resp BP Pulse Ox Pulse Ox 09/24/21 11:00 36.4 C 70 18 111/70 92 L 09/24/21 07:00 36.4 C 68 18 136/92 H 92 L 09/24/21 06:00 93 L 09/24/21 03:35 36.4 C 62 18 123/85 93 L - Problem List & Annotations (1) Acute hypoxemic respiratory failure due to COVID-19 SNOMED Code(s): 519559223 Code(s): U07.1 - COVID-19; J96.01 - ACUTE RESPIRATORY FAILURE WITH HYPOXIA Status: Acute Current Visit: Yes (2) COVID-19 virus infection SNOMED Code(s): 969311200 Code(s): U07.1 - COVID-19 Status: Acute Current Visit: Yes - Problem List Review Problem List Initiated/Reviewed/Updated: Yes - My Orders Last 24 Hours: My Active Orders 09/25/21 05:11 CBC WITH AUTO DIFF [HEME] AM COMPREHENSIVE METABOLIC PN,CMP [CHEM] AM 09/26/21 05:11 CBC WITH AUTO DIFF [HEME] AM COMPREHENSIVE METABOLIC PN,CMP [CHEM] AM - Plan Plan:: Acute hypoxemic respiratory failure due to COVID 19 Hypoxia: NC 3 L NC COVID: on dexamethasone and baricitinib, finished remdesivir T2DM: ivis Cisneros, will consult outreach educator due to new need for home insulin likely home tomorrow
[2021-09-24] MEDS: Melatonin 3 MG Tab PO PRN (21:26)
[2021-09-25] MEDS: Albuterol/Ipratropium 3.0-0.5 MG/3 ML Neb Soln NEB SCH ×4 (04:34→16:14)
[2021-09-25 06:36] LABS: BLOOD UREA NITROGEN,BUN 10 mg/dL (7.0-18.0); CARBON DIOXIDE,CO2 30.9 mmol/L (21.0-32.0); CHLORIDE,CL 101 mmol/L (98-107); GLUCOSE RANDOM 197 mg/dL (74-106); POTASSIUM,K 3.3 mmol/L (3.5-5.1); SODIUM,NA 139 mmol/L (136-145)
[2021-09-25] MEDS: Dexamethasone 4 MG Tab PO SCH (08:42)
[2021-09-25] MEDS: Citalopram 20 MG Tab PO SCH (08:42)
[2021-09-25] MEDS: Insulin Aspart 100 Units/ML 3 ML Pen SUBCUT SCH ×2 (08:43→12:11)
[2021-09-25] MEDS: Fluticasone Propionate Nasal Spray 16 GM Bottle NASBOTH SCH (08:43)
[2021-09-25] MEDS: Insulin Glargine,Human Rec. Analog 100 Units/ML 3 ML Pen SUBCUT SCH (08:44)
--- NOTE | 2021-09-25 10:47 | PCM.DCSUM1 ---
Discharge Summary - Discharge Data Discharge Date: 09/25/21 Discharge Disposition: Home, Self-Care 01 Condition: Stable - Referral to Home Health Primary Care Physician: PCP None - Discharge Diagnosis/Problem(s) (1) Acute hypoxemic respiratory failure due to COVID-19 SNOMED Code(s): 904601562 ICD Code: U07.1 - COVID-19; J96.01 - ACUTE RESPIRATORY FAILURE WITH HYPOXIA Status: Acute Current Visit: Yes (2) COVID-19 virus infection SNOMED Code(s): 900536187 ICD Code: U07.1 - COVID-19 Status: Acute Current Visit: Yes - Patient Summary/Data Consults: Consultations 09/23/21 14:26 Consult to Diabetic Nurse Specialist [CONS] Routine Hospital Course: This is a 61-year-old man with a past medical history of hypertension and diagnosis of COVID-19 approximately 5 days before admission who presents with weakness and shortness of breath. She was found to be hypoxic requiring NC to keep sats above 90%. She had elevated blood glucose and a HgA1c of 10. CT scan of the chest was negative for PE but did report bilateral ground glass opacities. She was treated with Dexamethasone, and Remdesivir. When her oxygen requirements increased to heated high flow she was started on Barcitinib. She did have eventual improvement in her symptoms and is now weaned down to simple NC O2 at 3 L. For her new onset diabetes she was started on Lantus and sliding scale insulin. religious educator was consulted and she is to follow up with Dr. Sandoval. - Patient Instructions Diet: Diabetic Diet Activity: As Tolerated Notify Provider of: Fever, Increased Pain, Nausea and/or Vomiting - Discharge Plan *PRESCRIPTION DRUG MONITORING PROGRAM REVIEWED*: No *COPY OF PRESCRIPTION DRUG MONITORING REPORT IN PATIENT MATT: No Prescriptions/Med Rec: Albuterol Sulfate [Albuterol Sulfate Hfa] 8.5 gm IH Q6H PRN #1 hfa.aer.ad PRN Reason: Wheezing Insulin Aspart [Insulin Aspart Flexpen] See Protocol SQ TID #1 insuln.pen Insulin Glarg,Human.Rec.Analog [Lantus Solostar] 15 units SUBCUT BEDTIME #1 pen Home Medications: Home Meds Citalopram [Citalopram HBr] 20 mg PO DAILY 09/18/21 [History] Lisinopril/Hydrochlorothiazide [Lisinopril-Hctz 20-12.5 mg Tab] 1 each PO DAILY 09/18/21 [History] Albuterol Sulfate [Albuterol Sulfate Hfa] 8.5 gm IH Q6H PRN #1 hfa.aer.ad 09/25/21 [Rx] Insulin Aspart [Insulin Aspart Flexpen] See Protocol SQ TID #1 insuln.pen 09/25/21 [Rx] Insulin Glarg,Human.Rec.Analog [Lantus Solostar] 15 units SUBCUT BEDTIME #1 pen 09/25/21 [Rx] Oxygen Flow Rate (L/min): 3 Patient Handouts: COVID-19 Frequently Asked Questions, COVID-19 Vaccine Information, What You Should Know About COVID-19 to Protect Yourself and Others - [facility] Referrals: Braxton Sandoval MD [Physician] - 10/02/21 11:00 am - Discharge Summary/Plan Comment DC Time >30 min.: No Total # of Minutes for Discharge Time: 20 - Patient Data Vitals - Most Recent: Last Vital Signs Temp 35.9 C L 09/25/21 08:15 Pulse 95 09/25/21 08:15 Resp 20 09/25/21 08:15 BP 135/76 09/25/21 08:15 Pulse Ox 95 09/25/21 08:15 Weight - Most Recent: 110.495 kg I&O - Last 24 hours: Intake & Output 09/24/21 09/25/21 09/25/21 22:59 06:59 14:59 Intake Total 1600 900 Output Total 200 1100 Balance 1400 -200 Lab Results - Last 24 hrs: Laboratory Results - last 24 hr 09/24/21 09/24/21 09/24/21 Range/Units 11:42 17:14 20:52 WBC (4.0-11.0) K/uL RBC (4.30-5.90) M/uL Hgb (12.0-16.0) g/dL Hct (36.0-46.0) % MCV (80.0-98.0) fL MCH (27.0-32.0) pg MCHC (31.0-37.0) g/dL RDW Std Deviation (28.0-62.0) fl RDW Coeff of Deniz (11.0-15.0) % Plt Count (150-400) K/uL MPV (7.40-12.00) fL Add Manual Diff Neutrophils % (Manual) (48.0-80.0) % Band Neutrophils % % Lymphocytes % (Manual) (16.0-40.0) % Monocytes % (Manual) (0.0-15.0) % Eosinophils % (Manual) (0.0-7.0) % Nucleated RBC % /100WBC Absolute Seg Neuts (1.4-5.7) Band Neutrophils # Lymphocytes # (Manual) (0.6-2.4) Monocytes # (Manual) (0.0-0.8) Eosinophils # (Manual) (0.0-0.7) Nucleated RBCs # K/uL Sodium (136-145) mmol/L Potassium (3.5-5.1) mmol/L Chloride (98-107) mmol/L Carbon Dioxide (21.0-32.0) mmol/L BUN (7.0-18.0) mg/dL Creatinine (0.6-1.0) mg/dL Est Cr Clr Drug Dosing mL/min Estimated GFR (MDRD) ml/min Glucose (74-106) mg/dL POC Glucose 292 H 446 H* 359 H (70-99) mg/dL Calcium (8.5-10.1) mg/dL Total Bilirubin (0.2-1.0) mg/dL AST (15-37) IU/L ALT (14-63) IU/L Alkaline Phosphatase (46-116) U/L Total Protein (6.4-8.2) g/dL Albumin (3.4-5.0) g/dL Globulin (2.6-4.0) g/dL Albumin/Globulin Ratio (0.9-1.6) 09/25/21 09/25/21 09/25/21 Range/Units 05:27 05:53 05:53 WBC 8.23 (4.0-11.0) K/uL RBC 4.46 (4.30-5.90) M/uL Hgb 12.9 (12.0-16.0) g/dL Hct 39.3 (36.0-46.0) % MCV 88.1 (80.0-98.0) fL MCH 28.9 (27.0-32.0) pg MCHC 32.8 (31.0-37.0) g/dL RDW Std Deviation 40.9 (28.0-62.0) fl RDW Coeff of Deniz 13 (11.0-15.0) % Plt Count 319 (150-400) K/uL MPV 9.40 (7.40-12.00) fL Add Manual Diff YES Neutrophils % (Manual) 54 (48.0-80.0) % Band Neutrophils % 2 % Lymphocytes % (Manual) 37 (16.0-40.0) % Monocytes % (Manual) 5 (0.0-15.0) % Eosinophils % (Manual) 2 (0.0-7.0) % Nucleated RBC % 0.0 /100WBC Absolute Seg Neuts 4.4 (1.4-5.7) Band Neutrophils # 0.2 Lymphocytes # (Manual) 3.0 H (0.6-2.4) Monocytes # (Manual) 0.4 (0.0-0.8) Eosinophils # (Manual) 0.2 (0.0-0.7) Nucleated RBCs # 0 K/uL Sodium 139 (136-145) mmol/L Potassium 3.3 L (3.5-5.1) mmol/L Chloride 101 (98-107) mmol/L Carbon Dioxide 30.9 (21.0-32.0) mmol/L BUN 10 (7.0-18.0) mg/dL Creatinine 0.8 (0.6-1.0) mg/dL Est Cr Clr Drug Dosing 73.63 mL/min Estimated GFR (MDRD) > 60.0 ml/min Glucose 197 H (74-106) mg/dL POC Glucose 207 H (70-99) mg/dL Calcium 9.3 (8.5-10.1) mg/dL Total Bilirubin 0.4 (0.2-1.0) mg/dL AST 29 (15-37) IU/L ALT 44 (14-63) IU/L Alkaline Phosphatase 73 (46-116) U/L Total Protein 6.7 (6.4-8.2) g/dL Albumin 2.7 L (3.4-5.0) g/dL Globulin 4.0 (2.6-4.0) g/dL Albumin/Globulin Ratio 0.7 L (0.9-1.6) Med Orders - Current: Current Medications Acetaminophen (Acetaminophen 325 Mg Tab) 650 mg PO Q4H PRN PRN Reason: Pain (Mild 1-3)/fever Last Admin: 09/20/21 21:37 Dose: 650 mg Documented by: Albuterol/Ipratropium (Albuterol/Ipratropium 3.0-0.5 Mg/3 Ml Neb Soln) 3 ml NEB Q4HRRT [facility] Last Admin: 09/25/21 05:45 Dose: 3 ml Documented by: Baricitinib (Baricitinib 2 Mg Tab) 4 mg PO Q24H [facility] Last Admin: 09/24/21 14:46 Dose: 4 mg Documented by: Citalopram Hydrobromide (Citalopram 20 Mg Tab) 20 mg PO DAILY [facility] Last Admin: 09/25/21 08:42 Dose: 20 mg Documented by: Dexamethasone (Dexamethasone 4 Mg Tab) 6 mg PO DAILY [facility] Stop: 09/29/21 16:31 Last Admin: 09/25/21 08:42 Dose: 6 mg Documented by: Dextrose/Water (50% Dextrose In Water 50 Ml Syringe) 50 ml IVPUSH ASDIRECTED PRN PRN Reason: Hypoglycemia Enoxaparin Sodium (Enoxaparin 40 Mg/0.4 Ml Syringe) 40 mg SUBCUT Q24H [facility] Last Admin: 09/24/21 14:46 Dose: 40 mg Documented by: Fluticasone Propionate (Fluticasone Propionate Nasal [place] 16 Gm Bottle) 0 gm NASBOTH BID [facility] Last Admin: 09/25/21 08:43 Dose: 1 spray Documented by: Glucagon (Glucagon,Human Recombinant 1 Mg Vial) 1 mg IM ASDIRECTED PRN PRN Reason: Hypoglycemia Insulin Aspart (Insulin Aspart 100 Units/Ml 3 Ml Pen) 0 unit SUBCUT TIDAC [facility]; Protocol Last Admin: 09/25/21 08:43 Dose: 2 units Documented by: Insulin Glargine (Insulin Glargine,Human Rec. Analog 100 Units/Ml 3 Ml Pen) 10 units SUBCUT BID [facility] Last Admin: 09/25/21 08:44 Dose: 10 unit Documented by: Melatonin (Melatonin 3 Mg Tab) 6 mg PO BEDTIME PRN PRN Reason: Insomnia Last Admin: 09/24/21 21:26 Dose: 6 mg Documented by: Ondansetron HCl (Ondansetron 4 Mg/2 Ml Sdv) 4 mg IVPUSH Q4H PRN PRN Reason: Nausea/Vomiting Last Admin: 09/20/21 08:39 Dose: 4 mg Documented by: Ondansetron HCl (Ondansetron 4 Mg Tab.Dis) 4 mg PO Q4H PRN PRN Reason: nausea, able to take PO Discontinued Medications Acetaminophen (Acetaminophen 325 Mg Tab) 650 mg PO Q4H PRN PRN Reason: Pain Last Admin: 09/19/21 08:13 Dose: 650 mg Documented by: Aspirin (Aspirin 81 Mg Tab.Chew) 324 mg PO ONETIME ONE Stop: 09/18/21 01:38 Last Admin: 09/18/21 01:50 Dose: 324 mg Documented by: Dexamethasone (Dexamethasone 4 Mg Tab) 6 mg PO ONETIME ONE Stop: 09/18/21 02:12 Last Admin: 09/18/21 02:22 Dose: 6 mg Documented by: Dextrose/Water (50% Dextrose In Water 50 Ml Syringe) 50 ml IVPUSH ASDIRECTED PRN PRN Reason: Hypoglycemia Glucagon (Glucagon,Human Recombinant 1 Mg Vial) 1 mg IM ASDIRECTED PRN PRN Reason: Hypoglycemia Lactated Ringer's (Ringers, Lactated) 1,000 mls @ 999 mls/hr IV .BOLUS ONE Stop: 09/18/21 02:37 Last Admin: 09/18/21 01:50 Dose: 999 mls/hr Documented by: Remdesivir 200 mg/ Sodium (Chloride) 250 mls @ 250 mls/hr IV ONETIME ONE Stop: 09/18/21 02:13 Last Admin: 09/18/21 03:00 Dose: 250 mls/hr Documented by: Lactated Ringer's (Ringers, Lactated) 1,000 mls @ 125 mls/hr IV ASDIRECTED [facility] Last Admin: 09/18/21 03:00 Dose: 125 mls/hr Documented by: Remdesivir 100 mg/ Sodium (Chloride) 100 mls @ 100 mls/hr IV Q24H [facility] Stop: 09/22/21 09:59 Last Admin: 09/22/21 09:12 Dose: 100 mls/hr Documented by: Insulin Glargine (Insulin Glargine,Human Rec. Analog 100 Units/Ml 3 Ml Pen) 10 units SUBCUT BEDTIME [facility] Last Admin: 09/18/21 21:23 Dose: 10 units Documented by: Iopamidol (Iopamidol 755 Mg/Ml 500 Ml Multipack Bottle) 100 ml IVPUSH ONETIME ONE Stop: 09/18/21 17:03 Last Admin: 09/18/21 17:03 Dose: 100 ml Documented by: Ketorolac Tromethamine (Ketorolac 15 Mg/Ml Sdv) 15 mg IM ONETIME ONE Stop: 09/18/21 01:38 Last Admin: 09/18/21 01:53 Dose: Not Given Documented by: Ketorolac Tromethamine (Ketorolac 15 Mg/Ml Sdv) 15 mg IVPUSH NOW STA Stop: 09/18/21 01:46 Last Admin: 09/18/21 01:50 Dose: 15 mg Documented by: Potassium Chloride (Potassium Chloride 10% 20 Meq/15 Ml Soln 30 Ml Ud Cup) 40 meq PO ONETIME ONE Stop: 09/18/21 02:14 Last Admin: 09/18/21 02:22 Dose: 40 meq Documented by: Potassium Chloride (Potassium Chloride 20 Meq Tab.Er) 40 meq PO ONETIME ONE Stop: 09/19/21 15:54 Last Admin: 09/19/21 16:19 Dose: 40 meq Documented by: Potassium Chloride (Potassium Chloride 20 Meq Tab.Er) 40 meq PO ONETIME ONE Stop: 09/22/21 15:08 Last Admin: 09/22/21 16:31 Dose: 40 meq Documented by: Potassium Chloride (Potassium Chloride 10% 20 Meq/15 Ml Soln 30 Ml Ud Cup) 40 meq PO ONETIME ONE Stop: 09/23/21 12:16 Last Admin: 09/23/21 12:47 Dose: 40 meq Documented by:
[2021-09-25] MEDS: Enoxaparin 40 MG/0.4 ML Syringe SUBCUT SCH (16:14)
== END 2021-09-25 15:40 | disposition home or self-care (01) | DRG 137 ==
LOC: MW.ED 01:04 → MW.MS 02:21
PROVIDERS: ADMIT Hospitalist; ATTEND Hospitalist
PROC: 3E0DX3Z Introduction of Anti-inflammatory into Mouth and Pharynx, External Approach (ICD-10-PCS; principal; 2021-09-18)
PROC: XW033E5 Introduction of Remdesivir Anti-infective into Peripheral Vein, Percutaneous Approach, New Technology Group 5 (ICD-10-PCS; 2021-09-18)
PROC: 5A0945A Assistance with Respiratory Ventilation, 24-96 Consecutive Hours, High Flow/Velocity Cannula (ICD-10-PCS; 2021-09-20)
DX: U07.1 COVID-19 (principal); J96.01 Acute respiratory failure with hypoxia; I10 Essential (primary) hypertension; E11.9 Type 2 diabetes mellitus without complications; E66.01 Morbid (severe) obesity due to excess calories; J12.82 Pneumonia due to coronavirus disease 2019; Z88.0 Allergy status to penicillin; Z79.899 Other long term (current) drug therapy; Z68.38 Body mass index [BMI] 38.0-38.9, adult
CPT/HCPCS: 0240U; 36415; 71045; 71045-26; 71275; 71275-26; 80048; 80053; 82247; 82248; 82947; 83036; 83735; 84075; 84450; 84460; 84484; 85025; 85379; 85652; 86140; 93005; 94640; 96374; 99285-25; A9270-GY; J1650; J1815-GY; J1885; J2405; J7050; J7120; J7620-GY; J8540; Q9967